=== PATIENT | female | born 1975 | race Caucasian/White ===

== ENCOUNTER 2020-03-12 14:41 | Outpatient (RCR) | payer OTHER, SELFPAY ==
--- NOTE | 2020-03-12 16:03 | PTOPEVAL ---
Thank you for referring Margie Sage to [facility]. Please review, sign, date and return this plan of care [facility]. I agree with and certify that the following plan of care is medically necessary. Referring Physician Date Admitting Provider: Attending Provider: Gen Everett, MD Referring Provider: *PT Outpatient Evaluation Start: 03/12/20 14:51 Freq: Status: Active Protocol: Document 03/12/20 14:59 J (Rec: 03/12/20 15:54 [facility] [id number]) Therapy Assessment Status Assessment Status Assessment Status Evaluation Evaluation Information Problem Diagnosis lumbar pain, bilateral hip pain, bilateral knee pain Onset 03/09/20 Additional Evaluation Detail LEFS = 98% functionally declined Subjective Information patient reports she was trying Query Text:As Reported By Patient/ to get injections to the back Family , but reports she needs a course of therapy prior to insurance approval for injections. she reports she has been having pain in the back for 25 years. she reports she has been having pain in the hips for about 14-15 years , and she has been having pain in the bilateral knees for about 1 year. she has been to PT for her hips and back many years ago. patient reports she has been walking with her rollator for 1 day. she reports she has a history of frequent falls. she reports she is unable to stand for long enough to shower. she reports she now has a shower chair as well as a rollator. she reports she has the most pain and increased symptoms in all joints with standing. she reports she also has a lot of difficulty with walking. Prior Level of Function Comments Additional Prior Level of Function patient reports she would like Comments to get back to fishing. she reports she also would like to get back to standing long enough to shower, get dressed, and walking a
== END 2020-04-24 16:23 | disposition home or self-care (01) ==
LOC: CHSPT 14:41
PROVIDERS: PCP Internal Medicine; Visit Provider Anesthesiology Pain Medicine
DX: M54.16 Radiculopathy, lumbar region (principal); M25.552 Pain in left hip; M25.551 Pain in right hip; M25.562 Pain in left knee; M25.561 Pain in right knee
CPT/HCPCS: 97014; 97110; 97162; G0283

== ENCOUNTER 2020-11-26 13:56 | Outpatient (CLI) | payer OTHER, SELFPAY ==
--- NOTE | ~2020-11-26 | US_ITS ---
EXAMINATION: US arterial ankle brachial ind EXAM DATE: 11/26/2020 15:02 INDICATION: Pain in left leg/Swelling. TECHNIQUE: Segmental pressures and plethysmographic and Doppler waveforms of the brachial and lower e xtremity arteries were obtained. Comparison is made to prior examination from 01/10/2014. FINDINGS: Right and left brachial artery pressures of 138 mm Hg and 138 mm Hg, respectively, are concordant (no rmal difference <= 30 mmHg). RIGHT LEG: The ankle-brachial index (JOSE) is 1.07 (normal >= 0.9-1). The great pressure is 82 mmHg. The lower extremity ratios, segmental pressure gradients as follows; Dorsalis pedis: 0.98 (135 mmHg). Posterior tibial: 1.07 (148 mmHg). (Normal gradients <= 20-30 mmHg between adjacent levels on the same leg or the same levels on the two legs). Arterial waveforms are biphasic. LEFT LEG: The ankle-brachial index (JOSE) is 1.05 (normal >= 0.9-1). The great toe pressure 91 mmHg. The lower extremity ratios, segmental pressure gradients as follows; Dorsalis pedis: 1.05 (145 mmHg). Posterior tibial: 0.96 (132 mmHg). (Normal gradients <= 20-30 mmHg between adjacent levels on the same leg or the same levels on the two legs). Arterial waveforms are monophasic. IMPRESSION: 1. Right ankle-brachial index 1.07, normal. 2. Left ankle-brachial index 1.05, normal. Reviewed, dictated and finalized at location A. SSES PREPARER
--- NOTE | ~2020-11-26 | US_ITS ---
EXAMINATION: US venous doppler [facility] EXAM DATE: 11/26/2020 15:01 INDICATION: Pain and swelling in left leg . TECHNIQUE: Multiple grayscale, color flow and Doppler images of the left lower extremity deep venous system were obtained and reviewed. There is no prior study for comparison. FINDINGS: The left common femoral, femoral and profunda veins demonstrate normal color flow, respirat ory variation, augmentation and compressibility. Compressibility, color flow confirmed within the le ft popliteal, posterior tibial, peroneal, and greater saphenous veins. IMPRESSION: 1. No left lower extremity deep venous thrombosis. Reviewed, dictated and finalized at location A. NESS PLANNING MANAGER
[2020-11-26 14:09] LABS: Basophils Absolute Auto 0.06 K/mm3 (0.00-0.10); Basophils Percent Auto 0.7 % (0.0-1.0); Eosinophils Absolute Auto 0.07 K/mm3 (0.02-0.50); Eosinophils Percent Auto 0.8 % (1.0-6.0); Hematocrit 39.8 % (35.0-49.0); Immature Granulocyte Absolute 0.12 K/mm3 (0.00-0.00); Immature Granulocyte Percent A 1.4 % (0.0-0.0); Lymphocytes Absolute Auto 1.48 K/mm3 (1.10-4.50); Lymphocytes Percent Auto 16.7 % (18.0-42.0); Mean Corpuscular HGB Conc 32.7 g/dL (32.0-36.0); Mean Corpuscular Hemoglobin 31.3 pg (27.0-31.0); Mean Corpuscular Volume 95.7 fL (78.0-102.0); Mean Platelet Volume 9.2 fl (9.2-11.8); Monocytes Absolute Auto 0.45 K/mm3 (0.10-0.90); Monocytes Percent Auto 5.1 % (2.0-11.0); Neutrophils Absolute Auto 6.7 K/mm3 (1.7-7.2); Neutrophils Percent Auto 75.3 % (50.0-70.0); Platelet Count Result 256 K/mm3 (150-420); Red Blood Count 4.16 M/mm3 (4.20-5.40); Red Cell Distribution Width 14.5 % (11.6-14.4); White Blood Count 8.9 K/mm3 (4.8-10.8)
[2020-11-26 14:25] LABS: Alanine Aminotransferase 20 U/L (14-59); Albumin Level 3.8 g/dL (3.4-5.0); Alkaline Phosphatase 106 U/L (46-116); Anion Gap 6 mmol/L (8-16); Aspartate Amino Transferase 10 U/L (15-37); Bilirubin,Total 0.5 mg/dL (0.00-1.00); Blood Urea Nitrogen 11 mg/dL (7-18); Calcium 9.6 mg/dL (8.5-10.1); Carbon Dioxide 31 mmol/L (21-32); Chloride 103 mmol/L (98-108); Estimated Glomerular Filt Rate 49; Glucose 91 mg/dL (70-99); Osmolality Calculated 289 mOsm/kg (285-295); Potassium 4.1 mmol/L (3.5-5.1); Sodium 140 mmol/L (136-145); Total Protein 7.5 g/dL (6.4-8.2); Uric Acid 6.2 mg/dL (2.6-6.0)
[2020-11-26 14:39] LABS: D Dimer 0.93 mg/L (0.19-0.50)
== END 2020-11-26 13:57 | disposition home or self-care (01) ==
LOC: CHSLAB 13:58
PROVIDERS: PCP Internal Medicine; Visit Provider Internal Medicine
DX: M79.605 Pain in left leg (principal); M79.89 Other specified soft tissue disorders
CPT/HCPCS: 36415; 80053; 84550; 85025; 85380; 93922; 93971

== ENCOUNTER 2020-11-27 10:57 | Outpatient (CLI) | payer OTHER, SELFPAY ==
--- NOTE | ~2020-11-27 | MM_ITS ---
EXAMINATION: MM screening lauren BI w shelly HISTORY: Screening TECHNIQUE: Craniocaudal and mediolateral oblique 3-D tomosynthesis images were obtained and synthetic 2-D images were generated. CAD analysis was submitted and interpreted. COMPARISON: No prior mammogram is available for comparison at this institution. BREAST PARENCHYMAL COMPOSITION: The breasts are heterogenously dense, which may obscure small masses. FINDINGS: There is no mammographic evidence for malignancy in the left breast. There is focal asymmet ry in the upper inner quadrant of the right breast. IMPRESSION: 1. Focal asymmetry of the right breast, upper inner quadrant. 2. Additional mammographic views and possible breast ultrasound are recommended. BI-RADS Category 0: Incomplete: Needs additional imaging evaluation. Reviewed, dictated and finalized at location A. 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 Focal asymmetry of the right breast, upper inner quadrant. 2. Additional mammographic views and possible breast ultrasound are recommended . BI-RADS Category 0: Incomplete: Needs additional imaging evaluation.
== END 2020-11-27 10:58 | disposition home or self-care (01) ==
PROVIDERS: PCP Internal Medicine
DX: Z12.31 Encounter for screening mammogram for malignant neoplasm of breast (principal)
CPT/HCPCS: 77063; 77067

== ENCOUNTER 2020-12-08 09:19 | Outpatient (CLI) | payer OTHER, SELFPAY ==
--- NOTE | ~2020-12-08 | MMUS_ITS ---
EXAMINATION: MM diagnostic lauren RT w shelly, US breast RT limited HISTORY: Follow-up right breast asymmetry TECHNIQUE: Additional 3-D tomosynthesis images of the right breast were performed and synthetic 2-D i mages were generated. CAD analysis was submitted and interpreted. High resolution Limited right breas t ultrasound was performed. COMPARISON: Comparison to multiple prior studies sequentially, with oldest reviewed study dated 07/26. BREAST PARENCHYMAL COMPOSITION: Breast composed of scattered areas of fibroglandular density. FINDINGS: MAMMOGRAPHIC FINDINGS: There is a partially circumscribed mass lower inner quadrant of the right breast, middle third. No morrell spicious calcifications or architectural distortion. ULTRASOUND: Limited right breast ultrasound: At 3:00, 2 cm from the nipple there is an irregular hypoechoic mass measuring 6 x 5 x 5 mm. No signif icant posterior features or internal vascularity. At 6:00, 1 cm from the nipple, there is an irregula r shaped hypoechoic mass with antiparallel configuration and posterior shadowing measuring 6 x 4 x 4 mm. No internal vascularity. IMPRESSION: 1. Irregular shaped masses of the right breast at 3 and 6:00 as described above. Ultrasound-guided bi opsy of each of these masses recommended. BI-RADS CATEGORY 4-SUSPICIOUS ABNORMALITY RECOMMENDATION: Ultrasound-guided right breast biopsies recommended. Reviewed, dictated and finalized at location A. IMPRESSION: 1. Irregular shaped masses of the right breast at 3 and 6:00 as described above . Ultrasound-guided biopsy of each of these masses recommended. BI-RADS CATEGORY 4-SUSPICIOUS ABNORMALITY RECOMMENDATION: Ultrasound-guided right breast biopsies recommended.
== END 2020-12-08 09:20 | disposition home or self-care (01) ==
PROVIDERS: PCP Internal Medicine
DX: R92.8 Other abnormal and inconclusive findings on diagnostic imaging of breast (principal)
CPT/HCPCS: 76642; 77061; 77065; G0279

== ENCOUNTER 2020-12-16 12:36 | Outpatient (CLI) | payer OTHER, SELFPAY ==
--- NOTE | ~2020-12-16 | MMUS_ITS ---
EXAMINATION: US breast biopsy RT w image, US breast bx add lesion RT, MM post biopsy diagnostic RT DATE: 12/16/2020 INDICATION: Indeterminate masses at the 3:00 and 6:00 locations of the right breast. Ultrasound-guide d core biopsy is requested to evaluate for malignancy. TECHNIQUE AND FINDINGS: The risks and potential benefits of the procedure were discussed with the patient including bleeding, infection, and nondiagnostic specimen. A time out was performed. The skin of the right breast was pr epared and draped in usual sterile fashion. 1% lidocaine was used for superficial anesthesia. 1% lido oscar with epinephrine was used for deep anesthesia. Attention was first directed at the mass at the 3:00 location. A vacuum-assisted biopsy gun needle wa s advanced through to the outer edge of the mass from a lateral approach utilizing sonographic guidan ce. A total of two tissue core samples were obtained through the lesion. The lesion was no longer bhupendra ntified and if the second sampling. A tissue marker clip was then placed at the biopsy site. Hemostas is was achieved. Attention was then directed at the mass at the 6:00 location. A vacuum-assisted biopsy gun needle was advanced through to the outer edge of the mass from a lateral approach utilizing sonographic guidanc e. A total of two tissue core samples were obtained through the lesion. The lesion was no longer iden tified and if the second sampling. A tissue marker clip was then placed at the biopsy site. Hemostasi s was achieved. A sterile bandage was applied. The patient tolerated procedure well and there was no evidence of immediate complication. The patient was given verbal instructions to return to the Emergency Department in the event of severe breast pa in or rapid breast enlargement. A two view right breast mammogram was obtained to document tissue mar ker clip placement. IMPRESSION: 1. Successful ultrasound-guided vacuum-assisted biopsy of two right breast masses with tissue marker placement. Reviewed, dictated and finalized at location A. IMPRESSION: 1. Successful ultrasound-guided vacuum-assisted biopsy of two right breast mass es with tissue marker placement. IMPRESSION: 1. Successful ultrasound-guided vacuum-assisted biopsy of two right breast mass es with tissue marker placement.
== END 2020-12-16 12:37 | disposition home or self-care (01) ==
LOC: CHSIMG 12:37
PROVIDERS: PCP Internal Medicine
DX: N60.11 Diffuse cystic mastopathy of right breast (principal); N63.10 Unspecified lump in the right breast, unspecified quadrant
CPT/HCPCS: 19083; 19084; 77065; 88305; A4648

== ENCOUNTER 2021-01-28 13:16 | Outpatient (CLI) | payer OTHER, SELFPAY ==
--- NOTE | ~2021-01-28 | XR_ITS ---
EXAMINATION: XR ankle LT min 3V DATE: 01/28/2021 13:36 INDICATION: Left ankle pain TECHNIQUE: Anteroposterior, lateral, mortise, and additional oblique view of the ankle were obtained. COMPARISON: None. FINDINGS: Ankle soft tissue swelling is present. Bone alignment is normal. There is no fracture. IMPRESSION: 1. Ankle soft tissue swelling without acute osseous abnormality. Reviewed, dictated and finalized at location A.
--- NOTE | ~2021-01-28 | XR_ITS ---
EXAMINATION: XR foot LT min 3V DATE: 01/28/2021 13:35 INDICATION: Left foot pain TECHNIQUE: Dorsoplantar, lateral, and 2 oblique views of the left foot were obtained. COMPARISON: None. FINDINGS: There is soft tissue swelling of the ankle and foot. No fracture, dislocation, or subluxati on is identified. The joint spaces are unremarkable. IMPRESSION: 1. Soft tissue swelling without acute osseous abnormality. Reviewed, dictated and finalized at location A.
== END 2021-01-28 13:17 | disposition home or self-care (01) ==
PROVIDERS: PCP Internal Medicine; Visit Provider Internal Medicine
DX: M25.572 Pain in left ankle and joints of left foot (principal); M79.672 Pain in left foot
CPT/HCPCS: 73610; 73630

== ENCOUNTER 2021-02-19 09:49 | Emergency (ER) | payer OTHER, SELFPAY ==
--- NOTE | ~2021-02-19 | XR_ITS ---
EXAMINATION: XR lumbar spine 2-3V DATE: 02/19/2021 11:25 INDICATION: Low back pain. Fall. TECHNIQUE: 3 views of lumbar spine were obtained. COMPARISON: Lumbar spine radiographs 01/03/2014 FINDINGS: There is 3 mm retrolisthesis of L5 on S1. No fracture. Vertebral body heights are normal. T here is mildly decreased disc height at L5-S1. There is moderate to severe lower lumbar facet joint o steoarthritis. IMPRESSION: 1. Mild lumbar spondylosis. Reviewed, dictated and finalized at location A. IMPRESSION: 1. Mild lumbar spondylosis.
--- NOTE | ~2021-02-19 | XR_ITS ---
EXAMINATION: XR shoulder RT min 2V DATE: 02/19/2021 11:25 INDICATION: Right shoulder pain. Fall. TECHNIQUE: 4 views of right shoulder were obtained. COMPARISON: None. FINDINGS: Bone alignment is normal. No fracture. There is mild osteoarthritis of glenohumeral joint. Acromioclavicular joint is normal. IMPRESSION: 1. Mild right glenohumeral joint osteoarthritis. Reviewed, dictated and finalized at location A.
--- NOTE | ~2021-02-19 | XR_ITS ---
EXAMINATION: XR hip RT 2V w AP pelvis DATE: 02/19/2021 11:25 INDICATION: Right hip pain. TECHNIQUE: An anteroposterior view of the pelvis on 2 radiographs and 2 views of right hip were obtai wendy. COMPARISON: Right hip radiographs 01/03/2014 FINDINGS: Bone alignment is normal. No fracture. There is severe osteoarthritis of right hip and mode rate osteoarthritis of left hip. IMPRESSION: 1. Severe right hip osteoarthritis and moderate left hip osteoarthrosis. Reviewed, dictated and finalized at location A.
--- NOTE | 2021-02-19 10:02 | ED.FALL ---
HPI - Fall General Chief Complaint: Fall Stated Complaint: Feel last evening back pain Time Seen by Provider: 02/19/21 10:03 Source: patient Mode of arrival: ambulatory Limitations: no limitations History of Present Illness HPI Narrative: 45-year-old woman with a history of chronic low back pain comes in today complaining of low back pain, right hip and right shoulder pain as well as bruising on her left leg and buttocks after she tripped yesterday and fell in her kitchen. She denies head injury and loss of consciousness. She states that is painful to walk especially in her back and right hip. She denies prior joint or back surgery. She has been taking her usual ibuprofen and gabapentin for pain. MD complaint: fall Onset (ago): day(s) (1) Fall from: standing Fall witnessed: no Place fall occurred: home Loss of consciousness: none Prolonged down time: no Symptoms prior to fall: none Context: tripped/slipped Location of injury: pelvis ( Right hip) Location of injury - extremities: Right: shoulder Severity: severe Quality: sharp and aching Associated symptoms (after fall): denies Related Data Home Medications Medication Instructions Recorded Confirmed allopurinol 100 mg PO DAILY 02/19/21 02/19/21 atorvastatin 10 mg PO DAILY 02/19/21 02/19/21 bupropion HCl 150 mg PO DAILY 02/19/21 02/19/21 fluticasone propion-salmeterol 2 inh INHALATION DAILY 02/19/21 02/19/21 gabapentin 600 mg PO TID 02/19/21 02/19/21 hydrochlorothiazide 12.5 mg PO DAILY 02/19/21 02/19/21 magnesium oxide 800 mg PO DAILY 02/19/21 02/19/21 montelukast 10 mg PO DAILY 02/19/21 02/19/21 sertraline 150 mg PO DAILY 02/19/21 02/19/21 Allergies Allergy/AdvReac Type Severity Reaction Status Date / Time No Known Allergies Allergy Unknown Unverified 06/20/19 19:24 Review of Systems Constitutional: Constitutional: Denies chills and Denies fever(s) Eyes: Eyes: Denies change in vision and Denies photophobia ENT: Denies nasal congestion and Denies sore throat Cardiovascular: Cardiovascular: Denies chest pain and Denies radiating jaw, neck or arm pain Respiratory: Respiratory: Denies cough and Denies dyspnea Gastrointestinal: Gastrointestinal: Denies abdominal pain, Denies nausea and Denies vomiting Genitourinary: Genitourinary: Denies nocturia and Denies dysuria Musculoskeletal: Musculoskeletal: Reports arthralgias and Denies joint swelling Integumentary/Breasts: Skin/Breast: Denies pruritus, Denies erythema and Denies rash Neurologic: Denies vertigo, Denies dizziness, Denies syncope, Denies focal weakness and Denies numbness Hematologic/Lymphatic: Hematologic/Lymphatic: Denies easy bleeding and Denies easy bruising PMFSH Past Medical History Medical History (Updated 02/19/21 @ 11:38 by Torrey Holly MD) Chronic back pain COPD (chronic obstructive pulmonary disease) Hyperlipidemia Hypertension Surgical History Surgical History (Updated 02/19/21 @ 10:42 by Torrey Holly MD) H/O tubal ligation History of appendectomy Social History Social History Smoking status: Never smoker Alcohol intake: never Substance use: never Living arrangements: with family Exam Const: General: alert Orientation/consciousness: patient oriented x3 Limitations: no limitations Other: Moderate to severe acute distress. Eyes: Conjunctivae: conjunctivae normal Pupils: Equal, round and reactive pupils present EOM: EOMs intact bilaterally Resp: Effort & Inspection: normal respiratory effort and not labored Auscultation: clear to auscultation bilaterally, no rales, no rhonchi and no wheezes Cardio: Rate: regular rate Rhythm: regular rhythm Heart sounds: no murmurs Skin: General skin exam: normal color and no pallor Rashes: no rashes Neuro: General: patient oriented x3 and no focal motor deficits Speech: normal speech Other: antalgic gait Extrem: General: no clubbing, cyano
[2021-02-19 10:04] VITALS: BP 145/72; PULSE 74; RESP 18; TEMP 36.1; O2SAT 100
[2021-02-19] MEDS: HYDROcodone/acetaminophen (*CRX) 5-325 MG TABLET 1 TAB PO (10:23)
[2021-02-19 10:25] VITALS: BP 145/72; PULSE 74; RESP 18; TEMP 36.1; O2SAT 100
== END 2021-02-19 11:47 | disposition home or self-care (01) ==
PROVIDERS: Emergency Provider Emergency Medicine; PCP Internal Medicine
DX: S39.012A Strain of muscle, fascia and tendon of lower back, initial encounter (principal); W01.0XXA Fall on same level from slipping, tripping and stumbling without subsequent striking against object, initial encounter
CPT/HCPCS: 72100; 73030; 73502; 99283; 99284; A9270

== ENCOUNTER 2021-03-08 04:23 | Emergency (ER) | payer OTHER, SELFPAY ==
[2021-03-08 04:23] VITALS: BP 144/98; PULSE 83; RESP 20; TEMP 37.2; O2SAT 98
--- NOTE | 2021-03-08 04:28 | ED.LOWEXIN ---
HPI - Extremity Injury (Lower) General Chief Complaint: Extremity Injury, Lower Stated Complaint: LEFT FOOT PAIN Time Seen by Provider: 03/08/21 04:25 Source: patient Mode of arrival: ambulatory History of Present Illness HPI Narrative: Patient presents with numbness in left foot. This has gone on since yesterday pm, and has been associated at times with a sharp pain in that leg. She has had no known injury to the leg. She has been receiving steroid injections in her low spine for what appears to be spinal stenosis, and radicular pain. MD complaint: hip injury Place: home Severity: moderate Relieving factors: nothing Exacerbating factors: weight bearing Context: walking Associated symptoms: numbness and ambulatory Other symptoms: none Treatments prior to arrival: cold therapy Related Data Home Medications Medication Instructions Recorded Confirmed allopurinol 200 mg PO DAILY 02/19/21 03/08/21 atorvastatin 10 mg PO DAILY 02/19/21 03/08/21 bupropion HCl 150 mg PO DAILY 02/19/21 03/08/21 fluticasone propion-salmeterol 2 inh INHALATION DAILY 02/19/21 03/08/21 gabapentin 600 mg PO TID 02/19/21 03/08/21 hydrochlorothiazide 12.5 mg PO DAILY 02/19/21 03/08/21 magnesium oxide 800 mg PO DAILY 02/19/21 03/08/21 montelukast 10 mg PO DAILY 02/19/21 03/08/21 sertraline 150 mg PO DAILY 02/19/21 03/08/21 Allergies Allergy/AdvReac Type Severity Reaction Status Date / Time No Known Allergies Allergy Unknown Unverified 06/20/19 19:24 Review of Systems Constitutional: Constitutional: Reports no additional constitutional complaints Eyes: Eyes: Reports no additional eye complaints ENT: Reports system reviewed and no additional complaints, except as documented Cardiovascular: Cardiovascular: Reports no additional cardiovascular complaints Respiratory: Respiratory: Reports no additional respiratory complaints Gastrointestinal: Gastrointestinal: Reports no additional gastrointestinal complaints Genitourinary: Genitourinary: Reports no additional female genitourinary complaints Musculoskeletal: Musculoskeletal: Reports no additional musculoskeletal complaints Integumentary/Breasts: Skin/Breast: Reports system reviewed and no additional complaints, except as docu Neurologic: Reports system reviewed and no additional complaints, except as documented Psychiatric: Psychiatric: Reports no additional psychiatric complaints Endocrine: Endocrine: Reports no additional endocrine complaints Hematologic/Lymphatic: Hematologic/Lymphatic: Reports no additional hematologic/lymphatic complaints Allergic/Immunologic: Allergic/Immunologic: Reports no additional allergic/immunologic complaints [facility] Past Medical History Medical History Chronic back pain COPD (chronic obstructive pulmonary disease) Hyperlipidemia Hypertension Surgical History Surgical History H/O tubal ligation History of appendectomy Family History Family History (Updated 03/08/21 @ 04:50 by Juanjo Alanis MD) Other Family history non-contributory Social History Social History (Updated 03/08/21 @ 04:51 by Juanjo Alanis MD) Smoking packs per day: 1 Smoking cigarettes per day: 20.0 Smoking status: Current every day smoker Tobacco type: cigarettes Alcohol intake: never Substance use: never Exam Const: General: no acute distress and alert Orientation/consciousness: patient oriented x3 HENMT: Head: normal to inspection Ears: external ears normal and TM's normal bilaterally General nose exam: Normal external nose present Face and sinus: normal facial exam Mouth: Yes Normal oral and palatal mucosa present Throat: posterior oropharynx normal Eyes: Conjunctivae: conjunctivae normal Neck: Neck: normal visual inspection Chest: Chest palpation & inspection: normal inspection of the chest Resp: Effort & Inspection: normal respiratory effort
[2021-03-08] MEDS: DEXAMETHASONE 4 MG TABLET 12 MG PO (04:52)
[2021-03-08] MEDS: KETOROLAC (*BKC) 60 MG/2 ML VIAL IM (04:52)
[2021-03-08 05:05] VITALS: BP 144/98; PULSE 87; RESP 20; TEMP 36.6; O2SAT 97
== END 2021-03-08 05:10 | disposition home or self-care (01) ==
PROVIDERS: Emergency Provider Emergency Medicine; PCP Internal Medicine
DX: G58.9 Mononeuropathy, unspecified (principal)
CPT/HCPCS: 96372; 99283; J1885; J8540

== ENCOUNTER 2021-12-02 14:18 | Outpatient (CLI) | payer OTHER, SELFPAY ==
--- NOTE | ~2021-12-02 | XR_ITS ---
EXAMINATION: XR chest 2V DATE: 12/02/2021 14:44 INDICATION: Chronic obstructive pulmonary disease exacerbation. Shortness of breath and cough. TECHNIQUE: Frontal and lateral views of the chest were obtained. COMPARISON: Chest 2 views 12/29/2017 FINDINGS: The chest demonstrates clear lungs without pneumonia, pleural effusion, or pneumothorax. Th e heart size is normal. IMPRESSION: 1. No acute cardiopulmonary disease. Reviewed, dictated and finalized at location A. GER DIESEL
[2021-12-02 14:33] LABS: Basophils Absolute Auto 0.03 K/mm3 (0.00-0.10); Basophils Percent Auto 0.7 % (0.0-1.0); Eosinophils Absolute Auto 0.01 K/mm3 (0.02-0.50); Eosinophils Percent Auto 0.2 % (1.0-6.0); Hematocrit 37.3 % (35.0-49.0); Hemoglobin 12.7 g/dL (12.0-15.0); Immature Granulocyte Absolute 0.03 K/mm3 (0.00-0.00); Immature Granulocyte Percent A 0.7 % (0.0-0.0); Lymphocytes Absolute Auto 0.49 K/mm3 (1.10-4.50); Lymphocytes Percent Auto 10.8 % (18.0-42.0); Mean Corpuscular Hemoglobin 32.2 pg (27.0-31.0); Mean Corpuscular Volume 94.4 fL (78.0-102.0); Mean Platelet Volume 8.9 fl (9.2-11.8); Monocytes Absolute Auto 0.37 K/mm3 (0.10-0.90); Monocytes Percent Auto 8.1 % (2.0-11.0); Neutrophils Absolute Auto 3.6 K/mm3 (1.7-7.2); Neutrophils Percent Auto 79.5 % (50.0-70.0); Platelet Count Result 208 K/mm3 (150-420); Red Blood Count 3.95 M/mm3 (4.20-5.40); Red Cell Distribution Width 13.6 % (11.6-14.4); White Blood Count 4.6 K/mm3 (4.8-10.8)
[2021-12-02 15:02] LABS: Alanine Aminotransferase 18 U/L (14-59); Albumin Level 3.4 g/dL (3.4-5.0); Alkaline Phosphatase 99 U/L (46-116); Anion Gap 10 mmol/L (8-16); Aspartate Amino Transferase 28 U/L (15-37); Bilirubin,Total 0.4 mg/dL (0.00-1.00); Blood Urea Nitrogen 10 mg/dL (7-18); Calcium 8.9 mg/dL (8.5-10.1); Carbon Dioxide 29 mmol/L (21-32); Chloride 100 mmol/L (98-108); Estimated Glomerular Filt Rate > 60; Glucose 79 mg/dL (70-99); Osmolality Calculated 286 mOsm/kg (285-295); Potassium 3.4 mmol/L (3.5-5.1); Sodium 139 mmol/L (136-145); Total Protein 6.5 g/dL (6.4-8.2)
== END 2021-12-02 14:19 | disposition home or self-care (01) ==
LOC: CHSIMG 14:20
PROVIDERS: PCP Internal Medicine; Visit Provider Internal Medicine
DX: J44.1 Chronic obstructive pulmonary disease with (acute) exacerbation (principal)
CPT/HCPCS: 36415; 71046; 80053; 85025

== ENCOUNTER 2022-01-07 08:21 | Outpatient (CLI) | payer OTHER, SELFPAY ==
--- NOTE | ~2022-01-07 | XR_ITS ---
EXAMINATION: XR_CERV2-3V_CR DATE: 01/07/2022 08:53 INDICATION: Right-sided neck pain radiating to the chest. TECHNIQUE: 3 views of cervical spine were obtained. COMPARISON: None. FINDINGS: The C7-T1 junction is not well visualized on the lateral view. Bone alignment is normal. Ve rtebral body heights and intervertebral disc heights are normal. The facet joints are unremarkable. N o central canal stenosis or prevertebral soft tissue swelling. IMPRESSION: 1. No etiology for the patient's symptoms. Reviewed, dictated and finalized at location A.
[2022-01-07 08:36] LABS: Basophils Absolute Auto 0.05 K/mm3 (0.00-0.10); Basophils Percent Auto 0.8 % (0.0-1.0); Eosinophils Absolute Auto 0.06 K/mm3 (0.02-0.50); Hematocrit 38.9 % (35.0-49.0); Hemoglobin 13.1 g/dL (12.0-15.0); Immature Granulocyte Absolute 0.09 K/mm3 (0.00-0.00); Immature Granulocyte Percent A 1.5 % (0.0-0.0); Lymphocytes Absolute Auto 1.56 K/mm3 (1.10-4.50); Lymphocytes Percent Auto 25.3 % (18.0-42.0); Mean Corpuscular HGB Conc 33.7 g/dL (32.0-36.0); Mean Corpuscular Hemoglobin 32.7 pg (27.0-31.0); Mean Platelet Volume 9.1 fl (9.2-11.8); Monocytes Absolute Auto 0.38 K/mm3 (0.10-0.90); Monocytes Percent Auto 6.2 % (2.0-11.0); Neutrophils Percent Auto 65.2 % (50.0-70.0); Platelet Count Result 270 K/mm3 (150-420); Red Blood Count 4.01 M/mm3 (4.20-5.40); Red Cell Distribution Width 14.1 % (11.6-14.4); White Blood Count 6.2 K/mm3 (4.8-10.8)
[2022-01-07 08:43] LABS: Add Urine Microscopic? YES; Appearance Urine Clear (Clear); Bilirubin Urine Negative (Negative); Blood Urine 3+ (Negative); Color Urine Yellow (Yellow); Glucose Urine UA Negative (Negative); Ketones Urine Negative (Negative); Leukocyte Esterase Ur Trace LEU/UL (Negative); Nitrate Urine Negative (Negative); Protein Urine Negative (Negative); Urobilinogen Urine 0.2 mg/dL (0.2-1.0); pH Urine 6.5 (5.0-8.0)
[2022-01-07 09:00] LABS: Bacteria Urine Trace /hpf; Squamous Epithelial Cell Urine Many /hpf (Few)
[2022-01-07 09:01] LABS: Mucus Urine Few /lpf
[2022-01-07 09:38] LABS: Alanine Aminotransferase 22 U/L (14-59); Albumin Level 3.5 g/dL (3.4-5.0); Alkaline Phosphatase 97 U/L (46-116); Anion Gap 7 mmol/L (8-16); Aspartate Amino Transferase 17 U/L (15-37); Bilirubin,Total 0.5 mg/dL (0.00-1.00); Blood Urea Nitrogen 13 mg/dL (7-18); Calcium 9.5 mg/dL (8.5-10.1); Carbon Dioxide 31 mmol/L (21-32); Chloride 101 mmol/L (98-108); Cholesterol 158 mg/dL (0-200); Estimated Glomerular Filt Rate > 60; Free T4 Free Thyroxine 0.96 ng/dL (0.76-1.46); Glucose 91 mg/dL (70-99); HDL Direct 48 mg/dL (40-60); LDL Cholesterol Calculated 63 mg/dL (<130); Osmolality Calculated 288 mOsm/kg (285-295); Potassium 4.7 mmol/L (3.5-5.1); Sodium 139 mmol/L (136-145); Thyroid Stimulating Hormone 1.62 uIU/mL (0.36-3.74); Total Protein 6.5 g/dL (6.4-8.2); Triglycerides 237 mg/dL (0-150)
== END 2022-01-07 08:22 | disposition home or self-care (01) ==
LOC: CHSLAB 08:23
PROVIDERS: PCP Internal Medicine; Visit Provider Nurse Practitioner Family
DX: M54.2 Cervicalgia (principal); E78.2 Mixed hyperlipidemia; M79.7 Fibromyalgia; J44.1 Chronic obstructive pulmonary disease with (acute) exacerbation; F34.1 Dysthymic disorder; I10 Essential (primary) hypertension; M54.50 Low back pain, unspecified; R42 Dizziness and giddiness
CPT/HCPCS: 36415; 72040; 80053; 80061; 81001; 84439; 84443; 85025

== ENCOUNTER 2022-01-10 12:32 | Outpatient (CLI) | payer OTHER, SELFPAY ==
--- NOTE | ~2022-01-10 | MM_ITS ---
EXAMINATION: MM screening lauren BI w shelly HISTORY: Screening mammogram TECHNIQUE: Craniocaudal and mediolateral oblique 3-D tomosynthesis images were obtained and synthetic 2-D images were generated. CAD analysis was submitted and interpreted. COMPARISON: 12/12/2020 ultrasound-guided biopsy 12/08/2020 diagnostic right mammogram and limited right breast ultrasound 11/27/2020 bilateral screening mammogram BREAST PARENCHYMAL COMPOSITION: There are scattered areas of fibroglandular density. FINDINGS: Biopsy markers are noted on the right; history of prior benign right breast biopsy. There i s no evidence of suspicious mass, calcification, or architectural distortion to suggest malignancy in either breast. There has been no suspicious interval change. IMPRESSION: 1. No mammographic evidence of malignancy. 2. Recommend routine screening mammography in one year. BI-RADS Category 1: Negative Reviewed, dictated and finalized at location A.
== END 2022-01-10 12:33 | disposition home or self-care (01) ==
LOC: CHSIMG 12:33
PROVIDERS: PCP Internal Medicine
DX: Z12.31 Encounter for screening mammogram for malignant neoplasm of breast (principal)
CPT/HCPCS: 77063; 77067

== ENCOUNTER 2022-12-05 14:56 | Outpatient (CLI) | payer OTHER, SELFPAY ==
[2022-12-05 15:20] LABS: Basophils Percent Auto 0.9 % (0.0-1.0); Eosinophils Absolute Auto 0.12 K/mm3 (0.02-0.50); Eosinophils Percent Auto 1.1 % (1.0-6.0); Hematocrit 38.3 % (35.0-49.0); Hemoglobin 13.1 g/dL (12.0-15.0); Immature Granulocyte Absolute 0.17 K/mm3 (0.00-0.00); Immature Granulocyte Percent A 1.5 % (0.0-0.0); Lymphocytes Absolute Auto 1.87 K/mm3 (1.10-4.50); Lymphocytes Percent Auto 16.8 % (18.0-42.0); Mean Corpuscular HGB Conc 34.2 g/dL (32.0-36.0); Mean Corpuscular Hemoglobin 33.4 pg (27.0-31.0); Mean Corpuscular Volume 97.7 fL (78.0-102.0); Mean Platelet Volume 9.4 fl (9.2-11.8); Monocytes Absolute Auto 0.72 K/mm3 (0.10-0.90); Monocytes Percent Auto 6.5 % (2.0-11.0); Neutrophils Absolute Auto 8.2 K/mm3 (1.7-7.2); Neutrophils Percent Auto 73.2 % (50.0-70.0); Platelet Count Result 307 K/mm3 (150-420); Red Blood Count 3.92 M/mm3 (4.20-5.40); White Blood Count 11.2 K/mm3 (4.8-10.8)
[2022-12-05 15:33] LABS: Appearance Urine Clear (Clear); Bilirubin Urine Negative (Negative); Blood Urine Negative (Negative); Color Urine Light Yellow (Yellow); Glucose Urine UA Negative (Negative); Ketones Urine Negative (Negative); Leukocyte Esterase Ur Trace (Negative); Nitrate Urine Negative (Negative); Protein Urine Negative (Negative); Urobilinogen Urine 0.2 mg/dL (0.2-1.0); pH Urine 6.5 (5.0-8.0)
[2022-12-05 15:56] LABS: Add Urine Microscopic? YES; Bacteria Urine 1+ /hpf; RBC Urine None seen /hpf (0-2); Squamous Epithelial Cell Urine Few /hpf (Few); WBC Urine 0-3 /hpf (0-3)
[2022-12-05 16:52] LABS: Alanine Aminotransferase 29 U/L (14-59); Albumin Level 3.7 g/dL (3.4-5.0); Alkaline Phosphatase 101 U/L (46-116); Anion Gap 9 mmol/L (8-16); Aspartate Amino Transferase 18 U/L (15-37); Bilirubin,Total 0.5 mg/dL (0.00-1.00); Blood Urea Nitrogen 11 mg/dL (7-18); Calcium 9.5 mg/dL (8.5-10.1); Carbon Dioxide 28 mmol/L (21-32); Chloride 102 mmol/L (98-108); Estimated Glomerular Filt Rate > 60; Free T3 2.56 pg/mL (2.18-3.98); Free T4 Free Thyroxine 0.97 ng/dL (0.76-1.46); Glucose 80 mg/dL (70-99); Osmolality Calculated 286 mOsm/kg (285-295); Potassium 3.9 mmol/L (3.5-5.1); Sodium 139 mmol/L (136-145); Thyroid Stimulating Hormone 1.79 uIU/mL (0.36-3.74); Total Protein 7.2 g/dL (6.4-8.2); Vitamin B12 253 pg/mL (193-986)
[2022-12-11 10:00] LABS: Methylmalonic Acid 167 nmol/L (87-318)
== END 2022-12-05 14:57 | disposition home or self-care (01) ==
PROVIDERS: PCP Internal Medicine; Visit Provider Internal Medicine
DX: G62.9 Polyneuropathy, unspecified (principal); N39.0 Urinary tract infection, site not specified; E53.8 Deficiency of other specified B group vitamins; E78.2 Mixed hyperlipidemia
CPT/HCPCS: 36415; 80053; 81001; 82607; 83921; 84439; 84443; 84481; 85025; 86038; 86039; 87086; 87088

== ENCOUNTER 2022-12-12 08:20 | Outpatient (CLI) | payer OTHER, SELFPAY ==
--- NOTE | ~2022-12-12 | US_ITS ---
EXAMINATION: US arterial ankle brachial ind DATE: 12/12/2022 08:48 INDICATION: Peripheral arterial occlusive disease. TECHNIQUE: Segmental pressures and plethysmographic and Doppler waveforms of the brachial and lower e xtremity arteries were obtained. COMPARISON: None. FINDINGS: Right and left brachial artery pressures of 143 mm Hg and 135 mm Hg, respectively, are concordant (no rmal difference <= 30 mmHg). The right ankle-brachial index (JOSE) is 0.96 (normal >= 0.9-1.0). The right great toe-brachial index (TBI) is 0.50 (normal >= 0.65). Arterial Doppler waveforms are biphasic with brisk systolic upstrokes at both right posterior tibial and dorsalis pedis arteries. The left JOSE is 0.94. The left TBI is 0.69. Arterial Doppler waveforms are biphasic with brisk systol ic upstrokes at both left posterior tibial and dorsalis pedis arteries. IMPRESSION: 1. Mild arterial occlusive disease to the right lower limb with normal right JOSE but mildly decreased right TBI. 2. No significant arterial occlusive disease to the left lower limb with normal left JOSE and TBI. Reviewed, dictated and finalized at location A. IMPRESSION: 1. Mild arterial occlusive disease to the right lower limb with normal right AB I but mildly decreased right TBI. 2. No significant arterial occlusive disease to the left lower limb with normal left JOSE and TBI.
== END 2022-12-12 08:21 | disposition home or self-care (01) ==
LOC: CHSIMG 08:21
PROVIDERS: PCP Internal Medicine; Visit Provider Internal Medicine
DX: I73.9 Peripheral vascular disease, unspecified (principal)
CPT/HCPCS: 93922

== ENCOUNTER 2023-02-09 14:00 | Outpatient (CLI) | payer OTHER, SELFPAY ==
--- NOTE | ~2023-02-09 | US_ITS ---
EXAMINATION: US venous doppler [facility] DATE: 02/09/2023 14:31 INDICATION: Lower limb edema. TECHNIQUE: Grayscale ultrasound images without and with compression and Doppler ultrasound images of the bilateral lower extremity veins were obtained. COMPARISON: Ultrasound 11/26/2020 FINDINGS: The visualized portions of right common femoral vein, profunda (deep) femoral vein, femoral vein, pop liteal vein, peroneal veins, posterior tibial veins, and greater saphenous vein outflow are patent. The visualized portions of left common femoral vein, profunda femoral vein, femoral vein, popliteal v ein, peroneal veins, posterior tibial veins, and greater saphenous vein outflow are patent. IMPRESSION: 1. No deep venous thrombosis. Reviewed, dictated and finalized at location A.
== END 2023-02-09 14:01 | disposition home or self-care (01) ==
LOC: CHSLAB 14:02
PROVIDERS: PCP Internal Medicine; Visit Provider Internal Medicine
DX: R60.0 Localized edema (principal)
CPT/HCPCS: 93970

== ENCOUNTER 2023-02-14 09:08 | Outpatient (CLI) | payer OTHER, SELFPAY ==
--- NOTE | ~2023-02-14 | CT_ITS ---
EXAMINATION: CTA chest PE protocol DATE: 02/14/2023 10:08 INDICATION: Dyspnea on exertion. Chest pain. Positive d-dimer. TECHNIQUE: Computed tomography (CT) pulmonary angiogram of the chest was performed with 150 mL Omnipa que-350 intravenous contrast. Additional 3D reconstructions utilizing coronal maximum intensity proje ction (MIP) were performed. Automated exposure control and iterative reconstruction technique were em ployed. The dose-length product was 1941.89 mGy-cm. COMPARISON: None FINDINGS: Good but suboptimal contrast opacification of the pulmonary arteries both on the initial and repeated imaging. There is mild streak artifact from dense contrast in the superior vena cava and right atriu m. Minimal to mild scattered respiratory motion artifact most prominent at the lung bases. Together t his mildly decreases sensitivity in some of the smaller subsegmental pulmonary arteries. No pulmonary embolism identified. Mild discoid atelectasis in the lingula. Additional mild peripheral atelectasis at the anteromedial aspect of the right middle lobe. No pneumonia, pulmonary edema or pleural effusi on. Heart size is normal. No pericardial effusion. Thoracic aorta is normal in caliber. No pathologic ally enlarged thoracic lymphadenopathy. Diffuse hepatic steatosis. Mild S-shaped curvature of the tho racic spine with mild spondylosis. IMPRESSION: 1. No pulmonary embolism or other acute cardiopulmonary disease. Reviewed, dictated and finalized at location A.
== END 2023-02-14 09:09 | disposition home or self-care (01) ==
PROVIDERS: PCP Internal Medicine; Visit Provider Internal Medicine
DX: R06.02 Shortness of breath (principal); R79.1 Abnormal coagulation profile
CPT/HCPCS: 71275; Q9967

== ENCOUNTER 2023-04-26 12:45 | Outpatient (CLI) | payer OTHER, SELFPAY ==
--- NOTE | 2023-04-26 14:30 | NEURO_ITS ---
Impression: # Complains of numbness; Severe edema noted -- Extra strength stimulation required to obtain responses. # Bilateral mild neuropathy. # Normal needle/EMG without neurogenic changes. Nerve Conduction Studies Anti Sensory Summary Table Stim Site NR Peak (ms) P-T Amp (?V) Site1 Site2 Delta-P (ms) Dist (cm) Higinio (m/s) Left Sup Fibular Anti Sensory (Ant Lat Mall) 14 cm 3.8 13.9 14 cm Ant Lat Mall 3.8 16.0 42 Right Sup Fibular Anti Sensory (Ant Lat Mall) 14 cm 3.7 8.9 14 cm Ant Lat Mall 3.7 16.0 43 Left Sural Anti Sensory (Lat Mall) NO RESPONSE Calf NR Calf Lat Mall 16.0 Right Sural Anti Sensory (Lat Mall) NO RESPONSE Calf NR Calf Lat Mall 16.0 Motor Summary Table Stim Site NR Onset (ms) O-P Amp (mV) Site1 Site2 Delta-0 (ms) Dist (cm) Higinio (m/s) Left Peroneal Motor (Vastus Med) Ankle 2.6 2.5 Popit Ankle 7.6 35.0 46 Popit 10.2 1.7 Right Peroneal Motor (Vastus Med) Ankle 2.8 0.9 Popit Ankle 7.2 34.0 47 Popit 10.0 1.6 Left Tibial Motor (Abd Kitchen Brev) Ankle 3.4 1.9 Knee Ankle 7.9 38.0 48 Knee 11.3 0.9 Right Tibial Motor (Abd Kitchen Brev) Ankle 3.2 2.7 Knee Ankle 8.8 36.0 41 Knee 12.0 1.3 F Wave Studies NR F-Lat (ms) L-R F-Lat (ms) Left Peroneal (Mrkrs) (EDB) 45.86 1.80 Right Peroneal (Mrkrs) (EDB) 47.65 1.80 Left Tibial (Mrkrs) (Abd Hallucis) 47.93 0.58 Right Tibial (Mrkrs) (Abd Hallucis) 47.35 0.58 EMG Side Muscle Nerve Root Ins Act Fibs Amp Dur Recrt Comment Right AntTibialis Dp Br Fibular L4-5 Nml Nml Nml Nml Nml Right Gastroc Tibial S1-2 Nml Nml Nml Nml Nml Right Fibularis Long Sup Br Fibular L5-S1 Nml Nml Nml Nml Nml Right Flex Dig Long Tibial L5-S2 Nml Nml Nml Nml Nml Right Ext Dig Brev Dp Br Fibular L5, S1 Nml Nml Nml Nml Nml Left AntTibialis Dp Br Fibular L4-5 Nml Nml Nml Nml Nml Left Gastroc Tibial S1-2 Nml Nml Nml Nml Nml Left Fibularis Long Sup Br Fibular L5-S1 Nml Nml Nml Nml Nml Left Flex Dig Long Tibial L5-S2 Nml Nml Nml Nml Nml Left Ext Dig Brev Dp Br Fibular L5, S1 Nml Nml Nml Nml Nml MTDD
== END 2023-04-26 12:46 | disposition home or self-care (01) ==
LOC: ANHNEURO 12:45
PROVIDERS: PCP Internal Medicine; Visit Provider Internal Medicine
DX: G62.9 Polyneuropathy, unspecified (principal); R60.9 Edema, unspecified; R20.0 Anesthesia of skin
CPT/HCPCS: 95886; 95910

== ENCOUNTER 2023-05-03 13:28 | Outpatient (CLI) | payer OTHER, SELFPAY ==
--- NOTE | ~2023-05-03 | MM_ITS ---
EXAMINATION: MM screening [facility] BI w [facility] HISTORY: Screening mammogram TECHNIQUE: Craniocaudal and mediolateral oblique 3-D tomosynthesis images were obtained and synthetic 2-D images were generated. CAD analysis was submitted and interpreted. COMPARISON: 01/10/2022, 12/08/2020, 11/27/2020 BREAST PARENCHYMAL COMPOSITION: There are scattered areas of fibroglandular density. FINDINGS: No suspicious mass, calcification, or architectural distortion are identified in either teresa ast to suggest malignancy. There has been no suspicious interval change. IMPRESSION: 1. No mammographic evidence of malignancy. 2. Recommend routine screening mammography in one year. BI-RADS Category 1: Negative Reviewed, dictated and finalized at location A.
== END 2023-05-03 13:29 | disposition home or self-care (01) ==
LOC: CHSIMG 13:30
PROVIDERS: PCP Internal Medicine; Visit Provider Obstetrics & Gynecology
DX: Z12.31 Encounter for screening mammogram for malignant neoplasm of breast (principal)
CPT/HCPCS: 77063; 77067

== ENCOUNTER 2023-07-26 13:33 | Outpatient (CLI) | payer OTHER, SELFPAY | END 2023-07-26 13:34 | disposition home or self-care (01) | LOC: CHSLAB 13:35 | PROVIDERS: PCP Internal Medicine; Visit Provider Internal Medicine | DX: L03.311 Cellulitis of abdominal wall (principal) | CPT/HCPCS: 87070; 87205 ==

== ENCOUNTER 2023-09-21 14:19 | Outpatient (CLI) | payer OTHER, SELFPAY ==
[2023-09-21 14:40] LABS: Basophils Absolute Auto 0.11 K/mm3 (0.00-0.10); Eosinophils Absolute Auto 0.07 K/mm3 (0.02-0.50); Eosinophils Percent Auto 0.6 % (1.0-6.0); Hematocrit 36.5 % (35.0-49.0); Immature Granulocyte Absolute 0.14 K/mm3 (0.00-0.00); Immature Granulocyte Percent A 1.2 % (0.0-0.0); Lymphocytes Absolute Auto 1.79 K/mm3 (1.10-4.50); Lymphocytes Percent Auto 15.6 % (18.0-42.0); Mean Corpuscular HGB Conc 32.9 g/dL (32.0-36.0); Mean Corpuscular Hemoglobin 33.3 pg (27.0-31.0); Mean Corpuscular Volume 101.4 fL (78.0-102.0); Mean Platelet Volume 9.8 fl (9.2-11.8); Monocytes Absolute Auto 0.64 K/mm3 (0.10-0.90); Monocytes Percent Auto 5.6 % (2.0-11.0); Neutrophils Absolute Auto 8.8 K/mm3 (1.7-7.2); Platelet Count Result 365 K/mm3 (150-420); Red Cell Distribution Width 15.8 % (11.6-14.4); White Blood Count 11.5 K/mm3 (4.8-10.8)
[2023-09-21 14:57] LABS: INR 0.9; Partial Thromboplastin Time 28.8 SEC (23.90-30.70)
[2023-09-21 15:08] LABS: Alanine Aminotransferase 27 U/L (14-59); Albumin Level 3.7 g/dL (3.4-5.0); Alkaline Phosphatase 110 U/L (46-116); Anion Gap 4 mmol/L (8-16); Aspartate Amino Transferase 12 U/L (15-37); Bilirubin,Total 0.6 mg/dL (0.00-1.00); Blood Urea Nitrogen 12 mg/dL (7-18); Calcium 9.5 mg/dL (8.5-10.1); Carbon Dioxide 35 mmol/L (21-32); Chloride 97 mmol/L (98-108); Cholesterol 141 mg/dL (0-200); Estimated Glomerular Filt Rate 60; Free T4 Free Thyroxine 1.03 ng/dL (0.76-1.46); Glucose 89 mg/dL (70-99); HDL Direct 56 mg/dL (40-60); LDL Cholesterol Calculated 48 mg/dL (<130); Osmolality Calculated 280 mOsm/kg (285-295); Potassium 3.5 mmol/L (3.5-5.1); Sodium 136 mmol/L (136-145); Thyroid Stimulating Hormone 2.55 uIU/mL (0.36-3.74); Total Protein 7.4 g/dL (6.4-8.2); Triglycerides 183 mg/dL (0-150)
[2023-09-21 15:22] LABS: Hemoglobin A1C < 4.7 % (<5.7)
[2023-09-24 04:17] LABS: Total Triiodothyronine (T3) 125.3 ng/dL (76-181)
== END 2023-09-21 14:20 | disposition home or self-care (01) ==
LOC: CHSLAB 14:22
PROVIDERS: PCP Internal Medicine; Visit Provider Internal Medicine Cardiovascular Disease
DX: I87.2 Venous insufficiency (chronic) (peripheral) (principal); R60.0 Localized edema; M79.605 Pain in left leg; M19.90 Unspecified osteoarthritis, unspecified site; I10 Essential (primary) hypertension; J44.1 Chronic obstructive pulmonary disease with (acute) exacerbation; I47.10 Supraventricular tachycardia, unspecified; I45.3 Trifascicular block; R06.09 Other forms of dyspnea; G47.33 Obstructive sleep apnea (adult) (pediatric); R07.9 Chest pain, unspecified; E78.5 Hyperlipidemia, unspecified; J44.9 Chronic obstructive pulmonary disease, unspecified; F17.200 Nicotine dependence, unspecified, uncomplicated; F43.10 Post-traumatic stress disorder, unspecified; E66.9 Obesity, unspecified; I45.6 Pre-excitation syndrome; Z79.899 Other long term (current) drug therapy
CPT/HCPCS: 36415; 80053; 80061; 83036; 84439; 84443; 84480; 85025; 85610; 85730

== ENCOUNTER 2023-10-05 08:47 | Outpatient (CLI) | payer OTHER, SELFPAY ==
--- NOTE | ~2023-10-05 | US_ITS ---
EXAMINATION: US soft tissue upper back DATE: 10/05/2023 09:05 INDICATION: Soft tissue nodules at the right side of the mid to upper back TECHNIQUE: Multiple grayscale and Doppler ultrasound images of the region of concern at the right mid back were obtained. COMPARISON: None FINDINGS: There are couple subcutaneous nodules which are isoechoic and with similar echotexture to the surroun ding subcutaneous fat which measure 2.3 x 1.0 x 1.1 cm and 1.8 x 1.6 x 1.1 cm. No other abnormal mass es or fluid collections identified. IMPRESSION: 1. A couple nonspecific subcutaneous nodules with appearance most consistent with and statistically m ost likely to represent lipomas. Reviewed, dictated and finalized at location A. 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 A couple nonspecific subcutaneous nodules with appearance most consistent wi th and statistically most likely to represent lipomas.
== END 2023-10-05 08:48 | disposition home or self-care (01) ==
LOC: CHSIMG 08:48
PROVIDERS: PCP Internal Medicine; Visit Provider Internal Medicine
DX: R22.2 Localized swelling, mass and lump, trunk (principal)
CPT/HCPCS: 76604

== ENCOUNTER 2024-05-21 12:34 | Outpatient (CLI) | payer OTHER, SELFPAY ==
--- NOTE | ~2024-05-21 | MM_ITS ---
EXAMINATION: MM screening [facility] HISTORY: Screening TECHNIQUE: Craniocaudal and mediolateral oblique 3-D tomosynthesis images were obtained and synthetic 2-D images were generated. CAD analysis was submitted and interpreted. COMPARISON: Comparison to multiple prior studies sequentially, with oldest reviewed study dated 11/11. BREAST PARENCHYMAL COMPOSITION: Not dense: There are scattered areas of fibroglandular density. FINDINGS: There is no evidence of suspicious mass, calcification, or architectural distortion to sugg est malignancy in either breast. There has been no suspicious interval change. IMPRESSION: 1. No mammographic evidence of malignancy. 2. Recommend routine screening mammography in one year. BI-RADS Category 1: Negative Reviewed, dictated and finalized at location B.
== END 2024-05-21 12:35 | disposition home or self-care (01) ==
PROVIDERS: Absent Provider Obstetrics & Gynecology; Visit Provider Internal Medicine
DX: Z12.31 Encounter for screening mammogram for malignant neoplasm of breast (principal)
CPT/HCPCS: 77063; 77067

== ENCOUNTER 2024-05-26 09:55 | Emergency (ER) | payer OTHER, SELFPAY ==
--- NOTE | ~2024-05-26 | XR_ITS ---
Left ankle Technique: AP, oblique, and lateral views were obtained. Clinical History: Injury Findings: No acute fracture or dislocation is seen. Osseous alignment is anatomic. Ankle mortise and other visualized joint spaces are preserved. There is mild soft tissue swelling about the ankle. Impression: No fracture or dislocation. Reviewed, dictated and finalized at [facility]. Impression: No fracture or dislocation.
--- NOTE | ~2024-05-26 | XR_ITS ---
Left foot Technique: AP, oblique, and lateral views were obtained. Clinical History: Injury Findings: No acute fracture or dislocation is seen. Osseous alignment is anatomic. Joint spaces are p reserved without erosive or degenerative change. Soft tissues are unremarkable. Impression: Unremarkable left foot radiographs. Reviewed, dictated and finalized at location . Impression: Unremarkable left foot radiographs.
[2024-05-26 09:56] VITALS: BP 131/78; PULSE 79; RESP 20; TEMP 36.4; O2SAT 98
--- NOTE | 2024-05-26 09:56 | ED.LOWEXIN ---
HPI - Extremity Injury (Lower) General Chief Complaint: Extremity Injury, Lower Stated Complaint: left foot pain Time Seen by Provider: 05/26/24 09:56 Source: patient Mode of arrival: ambulatory Limitations: no limitations History of Present Illness HPI Narrative: Patient is a 48-year-old female with an injury to her left foot last night and rolled her left ankle and foot with inversion. MD complaint: ankle injury ( Left) and foot injury ( left) Onset (ago): day(s) (1) Injury: Left: ankle and foot Type of Injury: inversion Place: home Severity: moderate Severity scale (1-10): 8 Relieving factors: immobilization Exacerbating factors: movement and palpation Context: walking Associated symptoms: swelling and able to partially bear weight Other symptoms: none Related Data Home Medications Medication Instructions Recorded Confirmed allopurinol 100 mg tablet 100 mg PO DAILY 02/19/21 05/26/24 atorvastatin 10 mg tablet 10 mg PO DAILY 02/19/21 05/26/24 bupropion HCl 150 mg tablet,12 hr 300 mg PO DAILY 02/19/21 05/26/24 sustained-release montelukast 10 mg tablet 10 mg PO DAILY 02/19/21 05/26/24 calcitriol 0.5 mcg capsule 0.5 mcg PO DAILY 11/15/23 05/26/24 albuterol sulfate 90 mcg/actuation 2 inh inhalation Q4H PRN SOB 05/26/24 05/26/24 aerosol inhaler chlorthalidone 25 mg tablet 25 mg PO DAILY 05/26/24 05/26/24 docusate sodium 100 mg capsule 100 mg PO BID 05/26/24 05/26/24 duloxetine 60 mg capsule,delayed 60 mg PO HS 05/26/24 05/26/24 release fluticasone furoate 200 1 inh inhalation BID 05/26/24 05/26/24 mcg-vilanterol 25 mcg/dose inhalation powder (Breo Ellipta) losartan 100 mg tablet 50 mg PO HS 05/26/24 05/26/24 pregabalin 75 mg capsule 75 mg PO BID 05/26/24 05/26/24 spironolactone 25 mg tablet 25 mg PO DAILY 05/26/24 05/26/24 Allergies Allergy/AdvReac Type Severity Reaction Status Date / Time anti fungal cream Allergy Severe Swelling Uncoded 05/26/24 10:02 Review of Systems Review of Systems: All systems reviewed & are unremarkable except as noted in HPI and below Constitutional: Constitutional: Reports no additional constitutional complaints Eyes: Eyes: Reports no additional eye complaints ENT: Reports system reviewed and no additional complaints, except as documented Cardiovascular: Cardiovascular: Reports no additional cardiovascular complaints Respiratory: Respiratory: Reports no additional respiratory complaints Gastrointestinal: Gastrointestinal: Reports no additional gastrointestinal complaints Genitourinary: Genitourinary: Reports no additional female genitourinary complaints Musculoskeletal: Musculoskeletal: Reports no additional musculoskeletal complaints Integumentary/Breasts: Skin/Breast: Reports system reviewed and no additional complaints, except as docu Neurologic: Reports system reviewed and no additional complaints, except as documented Psychiatric: Psychiatric: Reports no additional psychiatric complaints Endocrine: Endocrine: Reports no additional endocrine complaints Hematologic/Lymphatic: Hematologic/Lymphatic: Reports no additional hematologic/lymphatic complaints Allergic/Immunologic: Allergic/Immunologic: Reports no additional allergic/immunologic complaints PMFSH Past Medical History Medical History Chronic back pain COPD (chronic obstructive pulmonary disease) Hyperlipidemia Hypertension Surgical History Surgical History H/O tubal ligation History of appendectomy Family History Family History Father Alcoholism Hypertension Mother Alcoholism Depression Grandparent Heart disease Grandparent Heart disease Other Family history non-contributory Social History Social History Smoking packs per day: 1 Smoking cigarettes per da
== END 2024-05-26 10:46 | disposition home or self-care (01) ==
LOC: CHSED 10:50
PROVIDERS: Emergency Provider Emergency Medicine; PCP Internal Medicine
DX: S93.402A Sprain of unspecified ligament of left ankle, initial encounter (principal); J44.9 Chronic obstructive pulmonary disease, unspecified; E78.5 Hyperlipidemia, unspecified; I10 Essential (primary) hypertension; F17.210 Nicotine dependence, cigarettes, uncomplicated; Z79.899 Other long term (current) drug therapy; X50.0XXA Overexertion from strenuous movement or load, initial encounter; Y92.009 Unspecified place in unspecified non-institutional (private) residence as the place of occurrence of the external cause
CPT/HCPCS: 73610; 73630; 99283

== ENCOUNTER 2024-05-28 09:49 | Outpatient (CLI) | payer OTHER, SELFPAY ==
--- NOTE | 2024-05-30 15:51 | P.PCNPFT_ITS ---
PFT Procedure Performed PFT Procedure Performed Spirometry with Pre/Post Bronchodilator Plethysmography (Lung Vol) Diffusing Cap (DLCO) Flow Vol Loop PFT Interpretation DOS: 05/28/2024 REQUESTING: Riddhi Graham MD REASON FOR TESTING: PULMONARY FUNCTION TESTS Results are reliable and reproducible. Spirometry: The pre-bronchodilator FEV1 is 2.18 L, 91%, normal. The pre- bronchodilator FVC is 2.70 L, 93%, normal. The FEV1/FVC ratio is 81%, normal. After bronchodilator, the FEV1 is 2.26 L, 94%, +3%. The post-bronchodilator FVC is 2.85 L, 98%, +5%. The FEV1/FVC ratio is 79%. Lung volumes: The total lung capacity is 3.83 L, 87%, normal. FRC is 1.78 L, 137%. The residual volume is 1.13 L, 76%, normal. The RV/TLC is 29%. Airway resistance is normal. Diffusion: DLCO is 14.8, 51%. The DLCO/VA is 4.24, 102%. Flow volume loop: The flow volume loop is normal. IMPRESSION: This study shows normal spirometry without significant response to bronchodilator, normal lung volumes and moderate diffusion impairment which normalizes with alveolar volume. Lack of response to bronchodilator should not preclude use if clinically indicated. Magalie Thompson MD
== END 2024-05-28 09:50 | disposition home or self-care (01) ==
LOC: CHSCARD 09:54
PROVIDERS: PCP Internal Medicine; Visit Provider Internal Medicine Cardiovascular Disease
DX: J44.9 Chronic obstructive pulmonary disease, unspecified (principal); F17.200 Nicotine dependence, unspecified, uncomplicated
CPT/HCPCS: 94060; 94726; 94729

== ENCOUNTER 2025-02-28 10:32 | Outpatient (CLI) | payer OTHER, SELFPAY ==
--- NOTE | ~2025-02-28 | XR_ITS ---
XR ankle RT min 3V, XR foot RT min 3V 02/28/2025 10:57 Indication: Right ankle and foot pain Procedure: 3 views right ankle and 4 views right foot Comparison: No prior studies for comparison. Findings: There is a degenerative calcaneal enthesophyte at plantar surface. Ankle mortise intact. No acute fracture or traumatic malalignment. Lisfranc joint intact. No focal soft tissue abnormality. N o foreign bodies. Impression: 1: No acute bone or joint abnormality. Reviewed, dictated and finalized at location A. Impression: 1: No acute bone or joint abnormality. Impression: 1: No acute bone or joint abnormality.
--- OUTSIDE RECORDS SUMMARY | 2025-02-28 10:37 | XMS_ITS | Clinical Summary ---
Author Organization [facility] [employer] Address [address] 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 [employer],non-owned Affiliates and Associated Physician Practices is amultiple site organization consisting of ambulatory clinics and hospital sitesin [place], [place], [place] and [place]. This disclosure is being madepursuant to the Care Everywhere program and may not contain all information available regarding this patient. Last updated 18.[facility] [employer] Allergies No known active allergies Medications * Be aware that medications may not be up to date on this document. Alwaysverify current medications with the patient. atorvastatin (LIPITOR) 10 MG tablet 11/15/2018 Active buPROPion XL 24hr (WELLBUTRIN-XL) 300 MG tablet 11/15/2018 Activ e montelukast (SINGULAIR) 10 MG tablet Take 10 mg by mouth at bedtime Active benzonatate (TESSALON) 100 MG capsule Take 100 mg by mouth 3 times daily as needed for Cough Active hydroCHLOROthia zide (HYDRODIURIL) 12.5 MG Take 25 mg by mouth once daily Active Magnesium Oxide (MAGNESIUM OXIDE 400) 240 MG PACK Active gabapentin PHN (GRALISE) 300 MG tablet Take 300 mg by mouth daily with dinner Active fluticasone-karen meterol 232-14 MCG/ACT inhaler Inhale 1 puff by mouth 2 times daily Active etodolac (LODINE) 200 MG capsule Take 2 capsules by mouth 2 times daily 120 capsule 2 08/21/2019 Active Active Problems No known active problems Social History Tobacco Use Types Packs/Day Years Used Date Smoking Tobacco: Former Cigarettes Smokeless Tobacco: Never Comments No Sex and Gender Information Value Date Recorded Sex Assigned at Not on file Legal Sex Female 11:26 AM CDT Gender Identity Not on file Sexual Orientation Not on file Last Filed Vital Signs Vital Sign Reading Time Taken Comments Blood Pressure 127/96 08/12/2019 1:28 PM 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 Pulse 78 08/12/2019 1:28 PM 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 Temperature - - Respiratory Rate - - Oxygen Saturation 97% 08/12/2019 1:28 PM 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 Inhaled Oxygen Concentration - - Weight 119.7 kg (264 lb) 08/12/2019 1:28 PM 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 Height 157.5 cm (5' 2) 08/12/2019 1:28 PM 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 Body Mass Index 48.29 08/12/2019 1:28 PM 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 Plan of Treatment Health Maintenance Due Date Last Done Comments COLOGUARD (AGES 45-75) - COL ON CA SCREENING 1976 COLON MONITORING 1976 COLONOSCOPY - COLON CA SCREENING 1976 CT COLONOGRAPHY - COLON CA SCREENING 1976 Colorectal Cancer Screening 1976 FIT - COLON CA SCREENING 1976 FLEX SIG - COLON CA SCREENING 1976 MAMMOGRAM 1976 HIV SCREENING 1991 HEPATITIS C SCREENING 05/24/1994 DTAP/TDAP/TD VACCINES (1 - Tdap) 1995 HEPATITIS B VACCINE (1 of 3 - 19+ 3-dose series) 1995 SCREENING FOR DIABETES 10/01/2018 COVID-19 VACCINE (1 - 2023-2 5 season) 2024 DEPRESSION SCREENING 09/25/2024 INFLUENZA VACCINE (Season Ended) 2025 ZOSTER VACCINE (1 of 2) 2026 HIB VACCINE Aged Out No longer eligi ble based on patient's age to complete this topic HPV VACCINE Aged Out No longer eligi ble based on patient's age to complete this topic MENINGOCOCCAL (Group B) VACC INE SHARED DECISION-MAKING Aged Out No longer eligibl e based on patient's age to complete this topic MENINGOCOCCAL GROUPS A/C/Y/W VACCINE Aged Out No longer eligible b ased on patient's age to complete this topic PNEUMOCOCCAL VACCINE Aged Out No long er eligible based on patient's age to complete this topic Insurance [facility] MEDICAID - OUT OF STATE [facility] Care Teams Construction Producer Relationship Specialty Start Date End Date Cornelia Teresa MD PCP - General 03/15/18
--- OUTSIDE RECORDS SUMMARY | 2025-02-28 10:37 | XMS_ITS | Referral Summary ---
Author Organization [facility] Building B Address [address] [place] [address] Care Team Providers Care Kennel Technician Name Role Phone Cornelia Teresa MD Primary Care Provider [phone] Allergies Active Allergy Reactions Criticality Noted Date Comments Prochlorperazine Rash Medium 09/11/2019 Terbinafine Rash,Unknown Medium 05/25/2022 Medications atorvastatin (LIPITOR) 10 mg tablet Take 10 mg by mouth daily 2 9 Active montelukast (SINGULAIR) 10 mg tablet Take 10 mg by mouth nightly Active buPROPion SR (WELLBUTRIN SR) 150 mg 12 hr tablet 150 mg 150 mg two times daily 9 Active NOT IN DATABASE, PRESCRIPTION, Drug name: Indica Dose: 10 mg Route: PO Frequency: once Duration: Active ibuprofen (ADVIL,MOTRIN) 800 mg tablet Take 800 mg by mouth every 6 (six) hours as needed for pain Active propranoloL (INDERAL) 10 mg tablet 2 Active losartan (COZAAR) 100 mg tablet [address] (CYMBALTA) 60 mg capsule 2 Active albuterol HFA (PROVENTIL HFA,VENTOLIN HFA,PROAIR HFA) 90 mcg/actuation inhaler 2 (two) times a day 9 Active albuterol 2.5 mg /3 mL (0.083 %) nebulizer solution as needed 0 Active allopurinoL (ZYLOPRIM) 100 mg tablet Take 1 tablet (100 mg total) by mouth 0 Active potassium chloride ER 10 mEq CR tablet 3 Active multivit-min/iro n fum/folic ac (ONE-A-DAY WOMEN'S COMPLETE ORAL) 3 Active methocarbamoL (ROBAXIN) 500 mg tablet 3 Active cyanocobalamin, vitamin B-12, (VITAMIN B-12 ORAL) 3 Active chlorthalidone (HYGROTON) 25 mg tablet Take by mouth 3 Active cetirizine (ZyrTEC) 10 mg tablet daily 0 Active calcitRIOL (ROCALTROL) 0.5 mcg capsule 0 Active Symbicort 160-4.5 mcg/actuation inhaler 0 Active biotin 10,000 mcg tablet,chewable 3 Active triamcinolone (KENALOG) 0.1 % ointmentIndicati ons:Skin Inflammation Apply to affected area 2-3 times a day for the next 7 to 14 days as needed. 30 g 1 4 Active docusate sodium (COLACE) 100 mg capsuleIndicatio ns:constipation TAKE 1 CAPSULE (100 MG TOTAL) BY MOUTH 2 (TWO) TIMES A DAY NEEDED FOR CONSTIPATION 60 capsule 3 4 Active Active Problems Problem Noted Date Diagnosed Date Chronic constipation 12/14/2023 Assessment & Plan (12/14/2023 2:24 PM CDT): Patient is physically limited due to hip pain/injury. Importance of adequate amount of fiber in diet discussed. Symptoms may be worsening as she is now taking additional diuretic medication needed for other comorbid condition at this time. Can take Colace daily. Advise 1 tablet daily, can increase to 2 tablets daily as needed. If no improvement in symptoms I would encourage patient to follow up with Gastroenterology. Acute vulvitis 12/14/2023 Assessment & Plan (12/14/2023 2:20 PM CDT): Steroid ointment to external area of vulva 2 to 3 times a day as needed. If no improvement in 2 weeks advised patient to call office. Importance of skin/vaginal hygiene discussed. Use of Dial or Dove soap only to external vaginal area. Keep skin of vulva as dry as possible and avoid excess moisture. Try to limit pad use, however I informed patient that I did understand this would be hard for her to do with her incontinence issues. Mixed stress and urge urinary incontinence 12/13 Assessment & Plan (12/14/2023 2:21 PM CDT): Does not desire urology consult or any intervention at this time. Patient is hopeful lifestyle modification and weight loss will lessen symptoms. Will continue to monitor. Screening for colon cancer 12/07/2020 Assessment & Plan (12/07/2020 3:00 PM CDT): copnstipation with one bm/week and blood in the stool. No family Hx. Blood in stool 12/07/2020 Overview (12/07/2020): Added automatically from request for surgery [id number] Morbid obesity with body mas s index (BMI) of 50.0 to 59.9 in adult 10/16/2019 Assessment & Plan (10/16/2019 10:26 AM SWEEP PRESS OPERATOR): Encourage a weight loss program such as Weight Watchers incorporating dietary changes and aerobic / weight-bearing exercise at least 4-5 times per week, for at least 30-45 minute sessions. HPV - Human papillomavirus test positive 015 Overview (12/30/2016): HPV - Human papillomavirus test positive Social History Tobacco Use Types Packs/Day Years Used Date Smoking Tobacco: Former Cigarettes Q uit: 09/25/2021 Smokeless Tobacco: Never Tobacco Cessation:Counseling Given: Not Answered Comments:Smoking History Packs/day: 1 Packs Alcohol Use Standard Drinks/Week Comments No 0 (1 standard drink = 0.6 oz pur e alcohol) AUDIT-C Answer Date Recorded Frequency of Alcohol Consumption Not on file 06/15/2023 Q2: How many drinks containi ng alcohol do you have on a typical day when you are drinking? Patient does not drink Frequency of Binge Drinking Not on file 05/27 PHQ-2 Answer Date Recorded PHQ-2 Score 0 09/11/2019 Personal Safety Answer Date Recorded Getting School Help Needed Not on file 11/23 Comments No Sex and Gender Information Value Date Recorded Sex Assigned at Not on file Legal Sex Female 2:15 AM SWEEP PRESS OPERATOR Gender Identity Not on file Sexual Orientation Not on file Last Filed Vital Signs Vital Sign Reading Time Taken Comments Blood Pressure 104/52 04/23/2024 9:54 AM CDT Pulse 76 12/15/2020 8:46 AM CDT Temperature 35.9 C (96.6 F) 12/15/2020 8:46 AM CDT Respiratory Rate 18 12/15/2020 8:46 AM CDT Oxygen Saturation 98% 12/15/2020 8:46 AM CDT Inhaled Oxygen Concentration - - Weight 128.8 kg (284 lb) 04/23/2024 9:54 AM CDT Height 154.9 cm (5' 1) 04/23/2024 9:54 AM CDT Body Mass Index 53.66 04/23/2024 9:54 AM CDT Plan of Treatment Not on file Procedures Procedure Name Priority Date/Time Associated Diagnosis Comments SCREENING MAMMOGRAM BILATERAL W TYSHAWN Schedule Routine, Read Routine (OP Routine) 05/21/2024 1:24 PM CDT HIGH RISK HPV DNA DETECTION WITH GENOTYPING Routine 04/23/2024 10:31 AM CDT Well woman exam COLONOSCOPY 12/15/2020 7:16 AM CDT from Last 3 Months or Most Recently Relevant to Health Maintenance Results * Screening Mammogram Bilateral W Tyshawn (05/21/2024 1:24 PM CDT) Anatomical Region Laterality Modality Breast Bilateral Mammography us Historical Provider MD [facility] MAMMO PROCEDURES Marilyn l Result * High Risk HPV DNA Detection with Genotyping (Molecular component) (04/23/2024 10:31 AM CDT) HPV HR 16 Not Detected Not Detected [facility] Comment:Testing performed by : [facility], [address] [facility] [place]., [address] HPV HR 18 Not Detected Not Detected [facility] RICE Comment:Testing performed by : [facility], [address] [place]., [address] HPV HR Non 16/18 Not Detected Not Detected [facility] RICE Comment: Interpretive Data Nucleic acid amplification for detection of high-risk Human Papilloma virus (HPV) is performed by the Angeline Sean 6800 HPV test. This assay specifically detects HPV-16 and HPV-18 genotypes. The following HPV genotypes are detected as high-risk HPV: HPV-31, 33, 35, ,39, 45, 51, 52, 56, 58, 59, 66, and 68. This assay has been approved by the [place] Food and Drug Administration for detection of HPV in cervical specimens collected by a physician using an endocervical brush/spatula or cervical broom and placed in the ThinPrep Pap Test PreservCyt collection containers. The performance characteristics of this test have been verified by the [facility] Molecular Infectious Disease laboratory. Correlate with separately reported cytology results, as applicable. Interpretive data last revised 23 Testing performed by: [facility], [address] [place]., [address] Endocervical 04/23/2024 10:3 1 AM CDT 04/24/2024 6:36 PM CDT Narrative ALYSON - 04/24/2024 8:56 PM CDT Clinical history and diagnosis->Well Woman Exam Number of vials->1 Testing type->Screening Last menstrual period (date if known)->7--24 Adithya Garces MD LAB BODY FLUIDS AND STOOLS ORDERABLES Final Result AL[facility]ON [id number] Department [place] [address] [facility] * COLONOSCOPY (12/15/2020 7:16 AM CDT) Anatomical Region Laterality Modality Other Narrative Procedure Note Torrey Gary MD - 12/15/2020 7:16 AM CDT [facility] Patient Name: Margie Sage Procedure Date: 12/15/2020 7:16 AM Date of : 1975 Admit Type: Outpatient Age: 45 Gender: Female Attending MD: Torrey Gary M.D. Room: [facility] ENDOSCOPY ROOM 2 Note Status: Finalized Patient Profile: Refer to note in patient chart for documentation of history and physical. Procedure: Colonoscopy Indications: This is the patient's first colonoscopy, Positive fecal immunochemical test Referring MD: Cornelia Teresa MD Providers: Torrey Gary M.D. Impression: - Hemorrhoids found on perianal exam. - The entire examined colon is normal. - No specimens collected. Recommendation: - Discharge patient to home. - Resume previous diet. - Continue present medications. - Repeat colonoscopy in 10 years for screening purposes. - Return to primary care physician as previously scheduled. Medicines: Propofol per Anesthesia Complications: No immediate complications. Estimated Blood Loss: Estimated blood loss: none. Procedure: Pre-Anesthesia Assessment: - This assessment was completed [Time ofAssessment] prior to the administration of sedation. The benefits, risks and alternatives of theprocedure and sedation were discussed and informed consentwas obtained. All questions were answered. Please referto the signed informed consent document in the medical record. The scope was passed under direct vision.The Colonoscope [id number] was introducedthrough the anus and advanced to the the cecum, identifiedby appendiceal orifice and ileocecal valve. The bowel preparation used was Miralax via single dose instruction. The bowel preparation used wasbisacodyl tablets via single dose instruction. Thecolonoscopy was performed with ease. The patient tolerated the procedure well. The quality of the bowelpreparation was good. Findings: Hemorrhoids were found on perianal exam. The colon (entire examined portion) appeared normal. Electronically signed by Torrey Gary M.D. Torrey Gary M.D. 12/15/2020 8:12:51 AM Number of Addenda: 0 Note Initiated On: 12/15/2020 7:16 AM Procedure Code(s): --- Professional --- 43520, Colonoscopy, flexible; diagnostic, including collection of specimen(s) by brushing or washing, when performed (separateprocedure) Diagnosis Code(s): --- Professional --- R19.5, Other fecal abnormalities K64.9, Unspecified hemorrhoids CPT copyright 2019 [employer]. All rights reserved. The codes documented in this report are preliminary and upon sap mobility architect reviewmay be revised to meet current compliance requirements. Recognized by the [employer] for promoting quality in endoscopy Torrey Gary MD ENDOSCOPY PROCEDURES Final Re sult from Last 3 Months or Most Recently Relevant to Health Maintenance Insurance [facility] Advance Directives For more information, please contact: [phone] * Full Code (Latest Code Status on File) Date Activated Date Inactivated Comments 12/15/2020 7:30 AM 12/15/2020 1:02 PM * Full Code Date Activated Date Inactivated Comments 12/15/2020 7:30 AM 12/15/2020 7:30 AM Care Teams Kennel Technician Relationship Specialty Start Date End Date Cornelia Teresa MD [address] [place] [address] PCP - General Internal Medicine 03/27/17
--- OUTSIDE RECORDS SUMMARY | 2025-02-28 10:37 | XMS_ITS | Clinical Summary ---
Author Organization [facility] Address [address] [place] [address] Phone Care Team Providers Care Epic Cadence Specialists Name Role Phone Cornelia Teresa MD Primary Care Provider [phone] Luis Holm MD Unavailable [phone] Allergies Active Allergy Reactions Criticality Noted Date Comments Amlodipine Unknown 03/14/2024 Clotrimazole Unknown 03/14/2024 Medications albuterol 108 (90 Base) MCG/ACT Aerosol Solution 01/02/2024 Active buPROPion SR (WELLBUTRIN SR) 150 MG TABLET SR 12 HR 02/20/2024 Active atorvastatin (LIPITOR) 10 MG Tablet 02/17/2024 Active triamcinolone (KENALOG) 0.1 % Ointment 12/14/2023 Active montelukast (SINGULAIR) 10 MG Tablet 02/28/2024 Active Breo Ellipta 200-25 MCG/ACT AEROSOL POWDER, BREATH ACTIVATED 02/26/2024 Ac tive allopurinol (ZYLOPRIM) 100 MG Tablet 02/17/2024 Active calcitRIOL (ROCALTROL) 0.5 MCG Capsule 03/14/2024 Active losartan (COZAAR) 100 MG Tablet 02/20/2024 Active DULoxetine (CYMBALTA) [address] Particles 02/28/2024 Active cetirizine (ZyrTEC) 10 MG Tablet Take 10 mg by mouth daily. Active Cyanocobalamin (Vitamin B-12 CR) 1000 MCG Tablet Controlled Release Take by mouth daily. Active methocarbamol (ROBAXIN) 500 MG Tablet Take 1,000 mg by mouth 4 times daily. Active pantoprazole (PROTONIX) 40 MG Tablet Delayed Response Take 40 mg by mouth daily. Active propranolol (INDERAL) 10 MG Tablet 03/14/2024 Active pregabalin (LYRICA) 75 MG Capsule 03/07/2024 Active Social History Tobacco Use Types Packs/Day Years Used Date Smoking Tobacco: Every Day Cigarettes Smokeless Tobacco: Never Tobacco Cessation:Ready to Q uit: Not Asked; Counseling Given: Not Answered Alcohol Use Standard Drinks/Week Comments Not Currently 0 (1 standard drink = 0.6 oz pur e alcohol) Comments Unknown Sex and Gender Information Value Date Recorded Sex Assigned at Not on file Legal Sex Female 4:50 PM CDT Gender Identity Not on file Sexual Orientation Not on file Plan of Treatment Health Maintenance Due Date Last Done Comments Hepatitis C Virus (HCV) Screening 1975 Mammogram 1975 TdaP Immunization 1975 Hepatitis B Immunization (1 of 3 - 19+ 3-dose series) 1995 Pneumococcal Immunization Combined (1 of 2 - PCV) 1995 Pap Smear 1997 Cervical Cancer Screening (CCS) 2006 HPV/Cotest 2006 Discussion re Starting/Frequency of Mammograms 2016 Colonoscopy 2021 Colorectal Cancer Screening 2021 SARS-COV-2 Immunization ( season) 2024 08/24/2021, 08/03/2021 Influenza Immunization (Seas on Ended) 2025 08/03/2021, 08/15/2014 Respiratory Syncytial Virus (RSV) Immunization (Adult) (1 - 1-dose 75+ series) 2051 Human Papillomavirus (HPV) Immunization Aged Out No longer eligible b ased on patient's age to complete this topic Meningococcal Immunization (ACWY) Aged Out No longer eligible b ased on patient's age to complete this topic Rotavirus Immunization Aged Out No lo nger eligible based on patient's age to complete this topic Insurance MEDICARE C [employer] Care Teams Epic Cadence Specialists Relationship Specialty Start Date End Date Cornelia Teresa MD [address] [place] [address] PCP - General Internal Medicine 04/05/17 Luis Holm MD [address] [place] [address] Consulting Physician Neurology 01/31/25
--- OUTSIDE RECORDS SUMMARY | 2025-02-28 10:37 | XMS_ITS | Clinical Summary ---
Author Organization [facility] Medical Office Building [facility] Address [address] [place] [address] Care Team Providers Care Hearing And Speech Assistant Name Role Phone Cornelia Teresa MD Primary Care Provider [phone] Allergies Active Allergy Reactions Criticality Noted Date [...] (12/07/2020): Added automatically from request for surgery [id number] Morbid obesity with body mas s index (BMI) of 50.0 to 59.9 in adult 10/16/2019 Assessment & Plan (10/16/2019 10:26 AM POSTAL SERVICE CLERK): Encourage a weight loss program such as Weight Watchers incorporating dietary changes and aerobic / weight-bearing exercise at least 4-5 times per week, for at least 30-45 minute sessions. HPV - Human papillomavirus test positive 015 Overview (12/30/2016): HPV - Human papillomavirus test positive Surgical History Surgery Date Site/Laterality Comments APPENDECTOMY 09/25/2010 - 09/24/2011 Appendectomy EAR SURGERY 09/25/2007 - 09/24/2008 ear surgery TUBAL LIGATION 09/25/2005 - 09/24/2006 Bilateral tubal ligation COLONOSCOPY 12/15/2020 First CARDIAC ELECTROPHYSIOLOGY MAPPING AND ABLATION CLEFT PALATE REPAIR CERVICAL BIOPSY W/ LOOP ELECTRODE EXCISION Medical History Medical History Date Comments Cleft palate Cleft palate History of abnormal cervical Papanicolaou smear 1993 Abnormal pap Abnormal Pap smear of cervix KANDACE Webber 1993 Chronic constipation 12/14/2023 Chronic diarrhea Hypertension Hyperlipidemia Anxiety 2017 Arthritis COPD (chronic obstructive pulmonary disease) (HC C) Depression 2017 Fibromyalgia, primary ? Joint pain 1995 Low back pain 1995 Morbid obesity ([facility]) 2002 Neuromuscular disorder ([facility]) 2021 Osteoporosis ? Sleep apnea 2019 Vitamin D deficiency ? Abnormal ECG 2018 Family History Medical History Relation Name Comments Miscarriages / Stillbirths Daughter 1 alexandre Obesity Daughter 2 julia Melanoma Father's Brother 1 Melanoma; Cancer Father's Brother 2 alexandra Alcohol abuse Mother Elizabeth Depression Mother Elizabeth Drug abuse Mother Elizabeth Obesity Mother Elizabeth Miscarriages / Stillbirths Paternal Grandmother [place] Relation Name Status Comments Daughter 1 alexandre Daughter 2 julia Father's Brother 1 Father's Brother 2 alexandra Mother Elizabeth Paternal Grandmother [place] Social History Tobacco Use Types Packs/Day Years [...] on file Legal Sex Female 2:15 AM POSTAL SERVICE CLERK Gender Identity Not on file Sexual Orientation Not on file Obstetrics History Para Term AB IAB SAB Ectopic Multiple Livin g Live Births 2 2 2 2 Date Outcome GA Total Labor Labor/2nd/3rd Weight Sex Type Anes PTL Connie A1 A5 Name Clin Para Vag-Spo nt Para Vag-Spo nt Last Filed Vital Signs Vital Sign Reading [...] 04/23/2024 9:54 AM CDT Plan of Treatment Health Maintenance Due Date Last Done Comments Depression Screening 1975 Hepatitis C Screening 1975 DTaP/Tdap/Td Vaccine (1 - Tdap) 1987 Hepatitis B Screening 1994 Pneumococcal vaccine <65 (1 of 2 - PCV) 1995 Covid-19 Vaccine (3 - 2023-2 5 season) 2024 08/24/2021, 08/03/2021 Cervical Cancer Screening 04/23/20252023, 04/23/2024, 10/19/2021, Additional history exists Regular Well Visit/Exam 18-64 04/23/2025, 10/19/2021, 10/13/2020, Additional history exists Breast Cancer Screening-Mammogram 05/21/2025 05/21/2024, 05/03/2023, 12/08/2020, Additional history exists Influenza Vaccine (Season Ended) 2025 08/15/20 14 Colon Cancer Screening-Colonoscopy 12/15/20302020 Procedures Procedure Name Priority Date/Time Associated Diagnosis [...] HPV HR 16 Not Detected Not Detected [facility] Comment:Testing performed by : [facility], [address] [place]., [address] HPV HR 18 Not Detected Not Detected [facility] RICE Comment:Testing performed by : [facility], [address] [place]., [address] HPV HR Non 16/18 Not Detected Not [...] this test have been verified by the [facility] Molecular Infectious Disease laboratory. Correlate with separately reported cytology results, as applicable. Interpretive data last revised 23 Testing performed by: [facility], [address] [place]., [address] Endocervical 04/23/2024 10:3 1 AM CDT 04/24/2024 6:36 PM CDT Narrative AL[facility]ON RICE - 04/24/2024 8:56 PM CDT Clinical history and diagnosis->Well Woman Exam Number of vials->1 Testing type->Screening Last menstrual period (date if known)->724 us Adithya Garces MD LAB BODY FLUIDS AND STOOLS ORDERABLES Final Result [facility] RICE [address] [place] [address] [facility] * COLONOSCOPY (12/15/2020 7:16 AM CDT) Anatomical Region Laterality Modality Other Narrative Procedure Note Torrey Gary MD - 12/15/2020 7:16 AM CDT [facility] Patient Name: Margie Sage Procedure Date: 12/15/2020 7:16 AM Date of : 1975 Admit Type: Outpatient Age: 45 Gender: Female Attending MD: Torrey Gary M.D. [facility] 2 Note Status: Finalized Patient [...] scope was passed under direct vision.The Colonoscope [id number] was introducedthrough the anus and advanced to [...] 7:16 AM Procedure Code(s): --- Professional --- 96832, Colonoscopy, flexible; diagnostic, including collection of specimen(s) by brushing or washing, when performed (separateprocedure) Diagnosis Code(s): --- Professional --- R19.5, Other fecal abnormalities K64.9, Unspecified hemorrhoids CPT copyright 2019 [employer]. All rights reserved. The codes documented in this report are preliminary and upon hcc coders reviewmay be revised to meet current compliance requirements. Recognized by the [employer] for promoting quality in endoscopy Torrey Gary MD ENDOSCOPY PROCEDURES Final Re sult from Last 3 Months or Most Recently Relevant to Health Maintenance Insurance [facility] [facility] [place] [facility] [place] Advance Directives For more information, please contact: [phone] * Full Code (Latest Code Status on File) Date Activated Date Inactivated Comments 12/15/2020 7:30 AM 12/15/2020 1:02 PM * Full Code Date Activated Date Inactivated Comments 12/15/2020 7:30 AM 12/15/2020 7:30 AM Care Teams Hearing And Speech Assistant Relationship Specialty Start Date End Date Cornelia Teresa MD [address] [place] [address] PCP - General Internal Medicine 03/27/17
--- OUTSIDE RECORDS SUMMARY | 2025-02-28 10:37 | XMS_ITS | CONTINUITY OF CARE DOCUMENT ---
Author Name marcos rodríguez Address Unknown Organization [facility] Address [address] [place] [address] Phone [phone] Care Team Providers Care Shipbuilding Draftsperson Name Role Phone Riddhi Graham MD Unavailable [phone] SHARITA BANKS MD Unavailable SHARITA BANKS MD Unavailable [phone] PROBLEMS Condition Status Date Provider Notes Long-term (current) use of o ther medications active Nestor Lagunas RN Other abnormal glucose- per PCP note 10-10-18 impaired fasting glucose active Nestor Lagunas RN Dyspnea on exertion active Ceferino Wich SVT active Romero Naik Carmen Parkinson White syndrome active Lucille Naik Obesity active Romero Naik PTSD active Romero Naik Tobacco abuse active Romero Naik Hyperlipidemia active Romero Naik COPD active Romero Naik ZEYAD, mild active Romero Naik Chest pain active Romero Naik Family History of Hyperlipidemia: completed - Jordy Polanco MD Acute exacerbation of chroni c obstructive airways disease active Curt Moody Hypertension active Enrique Dodge Osteoarthritis active Enrique Dodge Leg pain, left active Riddhi Graham MD Lower extremity edema, bilateral active [place] nda Ventimiglia [employer]ANT BABYSITTER Venous insufficiency, BLE active Jordy dhaliwal MD ENCOUNTERS Date Type Provider Location Encounter Diag nosis - In-person encounter Office Visit Riddhi Graham MD [facility] - In-person encounter Office Visit Riddhi Graham MD [facility] - In-person encounter Office Visit Riddhi Graham MD [facility] - In-person encounter Office Visit Jordy Polanco MD [facility] Family History of Hyperlipidemia:Venous insufficiency, BLE - In-person encounter Office Visit Bhavin Harrington MD [facility] - In-person encounter Office Visit Riddhi Graham MD [facility] Lower extremity edema, bilateral - In-person encounter Office Visit Riddhi Graham MD [facility] Leg pain, left - In-person encounter Office Visit Riddhi Graham MD [facility] HypertensionOsteoarthritis - In-person encounter Office Visit Riddhi Graham MD [facility] Acute exacerbation of chronic obstructive airways disease - In-person encounter Office Visit Riddhi Graham MD [facility] Carmen Parkinson White syndromeOSA, mild - In-person encounter Office Visit Riddhi Graham MD [facility] SVTWolff Parkinson White syndromeObesityPTSDTobacco abuseHyperlipidemiaCOPDOSA, mildChest pain VITAL SIGNS Date Observation Value Provider Body Mass Index (Ratio) 54.41 kg/m2 Joey Graham MD blood pressure, cuff size large Ke rri Gissell blood pressure, diastolic 62 mm[Hg] Ke rri Gissell blood pressure, systolic 114 mm[Hg] Ker ri Champnfelder oxygen saturation, oximetry 96 % Deanne Gruenenfelder respiratory rate E&M 12 /min Deanne G ruenenfelder pulse rate 97 /min Deanne Gruenenfe lder weight E&M 288 [lb_av] Deanne Gruenenfe lder height E&M 61 [in_i] Deanne Gruenenfe er Body Mass Index (Ratio) 54.60 kg/m2 Wilberto Ahmedzai blood pressure, diastolic 70 mm[Hg] Li nkLogic blood pressure, systolic 116 mm[Hg] Bianca kLogic blood pressure, cuff size large Ja rret blood pressure, diastolic 70 mm[Hg] Ja rret blood pressure, systolic 116 mm[Hg] Jar ret pulse rate 71 /min Rob y oxygen saturation, oximetry 96 % Rob respiratory rate E&M 18 /min Rob weight E&M 289 [lb_av] Rob y height E&M 61 [in_i] Rob y Body Mass Index (Ratio) 55.92 kg/m2 Joey Graham MD blood pressure, cuff size large Ke rri Gruenenfelder blood pressure, diastolic 70 mm[Hg] Ke rri Gruenenfelder blood pressure, systolic 122 mm[Hg] Ker ri Gruenenfelder oxygen saturation, oximetry 99 % Deanne Gruenenfelder respiratory rate E&M 12 /min Deanne G ruenenfelder pulse rate 106 /min Deanne Gruenenfe lder weight E&M 296 [lb_av] Deanne Ingram height E&M 61 [in_i] Deanne Ingram [facility] Body Mass Index (Ratio) 57.81 kg/m2 Farhana Polanco MD blood pressure, cuff size regular chris Blount blood pressure, diastolic 81 mm[Hg] chris Blount blood pressure, systolic 140 mm[Hg] She zhane Blount pulse rate 97 /min Lacey Blount respiratory rate E&M 18 /min Lacey Blount oxygen saturation, oximetry 97 % Lacey Blount weight E&M 306 [lb_av] Lacey Mine height E&M 61 [in_i] Laceycori Blount Body Mass Index (Ratio) 60.08 kg/m2 Adrian Harrington MD weight E&M 318 [lb_av] Bhavin Harrington MD blood pressure, cuff size large Ja [facility] blood pressure, diastolic 75 mm[Hg] Carl rret blood pressure, systolic 153 mm[Hg] Jar ret respiratory rate E&M 16 /min Rob oxygen saturation, oximetry 97 % Rob pulse rate 97 /min Rob height E&M 61 [in_i] Rob y Body Mass Index (Ratio) 59.32 kg/m2 Wilberto Wen blood pressure, diastolic 84 mm[Hg] Ke rri Gissell blood pressure, systolic 125 mm[Hg] Zaria Borrero blood pressure, cuff size large Ke rri Gissell oxygen saturation, oximetry 96 % Deanne Milleremigdiohome respiratory rate E&M 16 /min Deanne James raulpasqualeelder pulse rate 102 /min Deanne Ingram er weight E&M 314 [lb_av] Deanne Ingram lder height E&M 61 [in_i] Deanne Ingram er Body Mass Index (Ratio) 56.30 kg/m2 Joey Graham MD blood pressure, diastolic 82 mm[Hg] Cecille nkLogic blood pressure, systolic 122 mm[Hg] Bianca kLogic blood pressure, cuff size large Ke rri Eshanenfeld blood pressure, diastolic 82 mm[Hg] Ke rri Nevilleuenenfelder blood pressure, systolic 122 mm[Hg] Zaria Millerleena oxygen saturation, oximetry 96 % Deanne Milleremigdio respiratory rate E&M 16 /min Deanne James raultalatisidro pulse rate 83 /min Deanne Ingram [facility] weight E&M 298 [lb_av] Deanne Ingram er height E&M 61 [in_i] Deanne Ingram [facility] Body Mass Index (Ratio) 52.14 kg/m2 Tajadiel Dodge blood pressure, diastolic 90 mm[Hg] Cy brandi Cantor blood pressure, systolic 158 mm[Hg] Lisa peter Cantor respiratory rate E&M 18 /min Tri Cantor blood pressure, cuff size regular Cy brandi Cantor pulse rate 95 /min Tri Razbel l oxygen saturation, oximetry 95 % Tri Cantor weight E&M 276 [lb_av] Tri Campbel l height E&M 61 [in_i] Tri priest Body Mass Index (Ratio) 49.88 kg/m2 Alex bahena Lambros blood pressure, diastolic 80 mm[Hg] Jos terrazaseen Lou blood pressure, systolic 118 mm[Hg] Zechariah chapa Lou oxygen saturation, oximetry 98 % Ximena Lou respiratory rate E&M 18 /min Ximena Lou pulse rate 89 /min Jennings Lou weight E&M 264 [lb_av] Jennings Lou height E&M 61 [in_i] Ximena Lou Body Mass Index (Ratio) 48.93 kg/m2 Russel us Heena blood pressure, cuff size large Ke rri Gruenenfelder blood pressure, diastolic 80 mm[Hg] Ke rri Gruenenfelder blood pressure, systolic 108 mm[Hg] Zaria Oakesnfelder oxygen saturation, oximetry 99 % Deanne Oakesnfelder respiratory rate E&M 20 /min Deanne hillmanelder pulse rate 80 /min Deanne Nataly lder weight E&M 259 [lb_av] Deanne Eshanerishabhe lder height E&M 61 [in_i] Deanne Eshanerishabhe lder blood pressure, diastolic 80 mm[Hg] Da stefan Maribell blood pressure, systolic 118 mm[Hg] Dac ia Maribell Body Mass Index (Ratio) 44.40 kg/m2 Russel us Heena respiratory rate E&M 16 /min Romero Heena oxygen saturation, oximetry 97 % Romero Heena blood pressure, diastolic 80 mm[Hg] Thomas rcus Heena blood pressure, systolic 108 mm[Hg] Mar arlene Heena pulse rate 71 /min Romero Heena weight E&M 235 [lb_av] Romero Heena height E&M 61 [in_i] Romero Naik ALLERGIES Allergy Name Onset Date Reaction Criticality Status ANTIFUNGAL CREAM Low Criticality act [place] HISTORY OF MEDICATION USE Medication Status Instructions Dates Provider Indications Com ments chlorthalidone 25 mg tablet active TAKE 1 TABLET BY MOUTH DAILY 01/08 Georgia Arreguin pregabalin 75 mg capsule active Wilberto Wen Wegovy 0.25 mg/0.5 mL pen injector completed Inject 1 pen injector subcutaneously once a week Inject 0.25mg subcutaneously once a week for 4 weeks, then increase to 0.5mg once weekly if tolerated 01/25 - 04/26 Wilberto Wen spironolactone 50 mg tablet active TAKE 1 TABLET BY MOUTH EVERY DAY 10/17 Wilberto Wen ibuprofen 800 mg tablet active TAKE 1 TABLET BY MOUTH THREE TIMES DAILY NEEDED FOR PAIN 04/06 Bhavin Harrington MD chlorthalidone 25 mg tablet completed TAKE 1 TABLET BY MOUTH ONCE A DAY 04/06 - 01/08 Georgia Arreguin hydrochlorothiazide 12.5 mg capsule completed Take 1 capsule by mouth once a day - 04/06 Bhavin Harrington MD budesonide-formoter ol 160-4.5 mcg/actuation HFA aerosol inhaler active Ailyn Ventimiglia [employer] BABYSITTER duloxetine 60 mg capsule,delayed release(DR/EC) active Ailyn Ventimiglia [employer]FANT BABYSITTER calcitriol 0.5 mcg capsule active Ailynbabar Lugomiglia INFANT BABYSITTER cetirizine 10 mg tablet active Ailynbabar Lugomigljenny INFANT BABYSITTER atorvastatin 10 mg tablet active Ailyn Ventimiglia INFANT BABYSITTER losartan 50 mg tablet active Wilberto Wen hydrochlorothiazide 12.5 mg capsule completed Take 1 capsule by mouth once a day 06/29/22 follow up appointment needed - Portia Dyer albuterol sulfate 2.5 mg/3 mL (0.083 %) solution for nebulization active USE 1 VIAL IN NEBULIZER THREE TIMES DAILY NEEDED Enrique Dodge allopurinol 100 mg tablet active TAKE 1 TABLET BY MOUTH ONCE DAILY Enrique Dodge propranolol 10 mg tablet active Take 1 tablet by mouth three times a day 05/12 Akhil Olsen RN propranolol 10 mg tablet completed - 05/12 Riddhi Graham MD amlodipine 10 mg tablet completed Take 1 tablet by mouth once a day 06/12 - 06/11 Enrique Dodge montelukast 10 mg tablet active Take 1 tablet by mouth once a day 06/12 Tri Cantor fluticasone propion-salmeterol completed Inhale 1 puff twice a day 06/12 - Ailyn Lugomira WEIRP cyclobenzaprine 5 mg tablet active Take 1 tablet by mouth once a day 06/12 Tri Cantor gabapentin 400 mg capsule completed Take 1 tablet by mouth three times a day 06/12 - 04/06 Bhavin Harrington MD magnesium oxide 400 mg (241.3 mg magnesium) tablet completed Take 1 tablet by mouth twice a day 04/07 - 06/11 Enrique Dodge hydrochlorothiazide 12.5 mg capsule completed Take 1 capsule by mouth once a day 06/06 - 06/11 Enrique Dodge Ventolin HFA 90 mcg/actuation HFA aerosol inhaler active 1 puff three times a day 04/26 Riddhi Graham MD MELOXICAM 15 MG ORAL TABLET completed take 1 tab once daily 04/26 - 06/12 Enrique Dodge MAGNESIUM OXIDE 400 MG ORAL TABLET completed ONE TAB TWICE A DAY 04/22 - 06/12 Tri Cantor AMLODIPINE BESYLATE 10 MG ORAL TABLET completed one tablet daily 04/22 - 06/06 Riddhi Graham MD TRAMADOL HCL 50 MG ORAL TABLET completed take one pill on 10/26 - 04/26 Ximena Lou #12, 3 days supply, Filled atorvastatin 10 mg tablet completed Take 1 tablet by mouth once a day 11/15 - 06/11 Enrique Dodge #30, 30 days supply, Filled 9 IBUPROFEN 800 MG ORAL TABLET completed take one pill every 6 hours as needed 11/23 - 04/26 Ximena Lou bupropion HCl 150 mg tablet sustained-release 12 hr active Take 1 tablet by mouth twice a day 11/02 Tri Cantor VENTOLIN HFA 108 (90 BASE) MCG/ACT INHALATION AEROSOL SOLUTION completed 2 puffs every 4-6 hours 11/02 - 04/16 Deanne Borrero SOCIAL HISTORY Date Observation Value Provider drug use, illicit, d rug of choice marijuana Wilberto Hernandezzai drug use yes Wilberto Hernandezzai alcohol use no Wilberto Hernandezzai smoking/tobacco cess ation, patient education and counseling yes Wilberto Baronei smoking, year quit 2018 Wilberto lieberman number of years as a smoker 32 a Wilberto Hernandezzai smoking history, tot al pack/day 1 pkg a day Wilberto Hernandezzai cigarette use yes Wilberto Baronei smoking status Current every da y smoker Wilberto Baronei drug use, illicit, d rug of choice marijuana Wilberto Hernandezzai drug use yes Wilberto Hernandezzai alcohol use no Wilberto Hernandezzai smoking/tobacco cess ation, patient education and counseling yes Wilberto Hernandezzai smoking, year quit 2018 Wilberto liebermanai number of years as a smoker 32 a Wilberto Hernandezzai smoking history, tot al pack/day 1 pkg a day Wilberto Davidzai cigarette use yes Wilberto Hernandezzai smoking status Current every da y smoker Wilberto Hernandezzai drug use, illicit, d rug of choice marijuana Wilberto Ahmedzai drug use yes Wilberto Wen alcohol use no Wilberto Wen smoking/tobacco cess ation, patient education and counseling yes Wilberto Wen smoking, year quit 2019 Wilberto bee number of years as a smoker 32 a Wilberto Wen smoking history, tot al pack/day 1 pkg a day Wilberto Wen cigarette use yes Wilberto Wen smoking status Current every da y smoker Wilberto Wen number of grandchildren Jordy Polanco MD social history E&M S moking History: Akbar macias currently smokes every day. Akbar macias has been counseled to quit. Jordy Polanco MD smoking/tobacco cess ation, patient education and counseling yes Jordy Polanco MD social history reviewed E&M revi ewed - no changes required Jordy Polanco MD smoking history, tot al pack/day 1 pkg a day Lacey Blount cigarette use yes Lacey Blount smoking status Current every da y smoker Lacey Blount smoking/tobacco cess ation, patient education and counseling yes Bhavin Harrington MD smoking, year quit 2019 Bhavin finley MD number of years as a smoker 32 a Bhavin Harrington MD smoking history, tot al pack/day 1/2 ppd Bhavin Harrington MD cigarette use yes Bhavin Santiago smoking status Current every da y smoker Bhavin Harrington MD social history reviewed E&M revi ewed - no changes required Bhavin Harrington MD drug use, illicit, d rug of choice marijuana Ailyn Ventimiglia [employer] BABYSITTER drug use yes Ailyn Ventimig iesha INFANT BABYSITTER alcohol use no Ailyn Ventimig iesha [facility] smoking/tobacco cess ation, patient education and counseling yes Deanne Borrero smoking, year quit 2018 Deanne serrato number of years as a smoker 32 a Deanne Borrero smoking history, tot al pack/day 1/2 ppd Ailynbabar Lugomiglia [facility] cigarette use yes Deanne stern smoking status Current every da y smoker Deanne Borrero social history E&M S moking History: P atient currently smokes every day. P atient has been counseled to quit. Enrique Dodge social history reviewed E&M revi ewed - no changes required Enrique Dodge smoking/tobacco cess ation, patient education and counseling yes Deanne Borrero smoking, year quit 2018 Deanne serrato number of years as a smoker 32 a Deanne Borrero smoking history, tot al pack/day 2 ppd Deanne Borrero cigarette use yes Deanne stern smoking status Current every da y smoker Deanne Borrero smoking/tobacco cess ation, patient education and counseling yes Enrique Dodge social history E&M S moking History: P atient currently smokes every day. Enrique Dodge social history reviewed E&M revi ewed - no changes required Enrique Dodge smoking, year quit 2019 Tri guido number of years as a smoker 32 a Tri Devaughn smoking history, tot al pack/day 2 ppd Tri Cantor cigarette use yes Tri terrazas smoking status Current every da y smoker Tri Cantor social history E&M S moking History: P atient is a former smoker. Curt Moody social history reviewed E&M revi ewed - no changes required Curt Moody smoking, year quit 2019 Ximena bethea number of years as a smoker 32 a Ximena Damonam smoking history, tot al pack/day 2 ppd Ximena Lou cigarette use yes Ximena Damonam smoking status Current every da y smoker Curt Moody social history reviewed E&M revi ewed - no changes required Romero Naik social history E&M S moking History: Akbar macias is a former smoker. Romero Naik number of years as a smoker 32 a Deanne Armstronger smoking history, tot al pack/day 2 ppd Deanne Milleremigdioer smoking, year quit 2018 Deanne Trevino endevfelder cigarette use yes Deanne Miller elder smoking status Former smoker Deanne Oakes nfelder number of grandchildren Riddhi Naik social history reviewed E&M revi ewed - no changes required Romero Naik FUNCTIONAL STATUS Date Observation Value Provider periodic limb movement index absent (0) Rohan Covrarubias MD FAMILY HISTORY Family Member Condition Mother Family History Unkno wn Father Family History of Hy perlipidemia: INSURANCE PROVIDERS Payer name Policy type / Coverage type [employer] party ID [employer] [employer] Medicaid [id number] [place] [employer] Medicare 3000 [id number] ADVANCE DIRECTIVES Name Date DISCUSSED - NO DECISION MADE TREATMENT PLAN Date Name Performer [id number],Jordy Pittman ra, [place] [id number],Jordy Pittman ra, [place] [id number],B, B P today: 140/81 P rior BP: 153/75 (04/06/2023) Her updated medication list for this problem includes: Chlorthalidone 25 Mg Tablet (Chlorthalidone) ..... Take 1 tablet by mouth once a day Losartan 100 Mg Tablet (Losartan) Propranolol 10 Mg Tablet (Propranolol) ..... Take 1 tablet by mouth three times a day Jordy Polanco MD [id number],S, Jordy Aceves ra, [place] [id number],S, H er updated medication list for this problem includes: Atorvastatin 10 Mg Tablet (Atorvastatin) Jordy Polanco MD [id number],B, Jordy Aceves ra, [place] [id number],C,T he patient is using CPAP on a regular basis. The patient has been benefiting from therapy and should continue use. Bhavin Harrington MD [id number],C, B P today: 153/75 P rior BP: 125/84 (09/23/2022) Prior 10 Yr Risk Heart Disease: Not enough information (11/16/2018) Orders: 9 9214 MOD 30-39min (CPT-19653) C omplete Echo (CPT-10461) A rterial Duplex Bi-Lower EX (CPT-45865) V enous Doppler Bilateral LE - Reflux (CPT-31321) B ASIC METABOLIC PANEL W/EGFR (46625) P ROBNP, N TERMINAL (32936) T SH, free T4, total T3 (7444) M icroalb/Creatinine Urine, Random (7117) H EMOGLOBIN A1c (496) The following medications were removed from the medication list: Hydrochlorothiazide 12.5 Mg Capsule (Hydrochlorothiazide) ..... Take 1 capsule by mouth once a day Her updated medication list for this problem includes: Chlorthalidone 25 Mg Tablet (Chlorthalidone) ..... Take 1 tablet by mouth once a day Losartan 100 Mg Tablet (Losartan) Propranolol 10 Mg Tablet (Propranolol) ..... Take 1 tablet by mouth three times a day Bhavin Harrington MD [id number],C,C hanged her HCTZ to chlorthalidone 25 mg once per day Bhavin Harrington MD [id number],C,S he is NSR on EKG today, without acute findings. She has rare palpitations. Will continue BB and monitor H er updated medication list for this problem includes: Propranolol 10 Mg Tablet (Propranolol) ..... Take 1 tablet by mouth three times a day Ailyn Avelar [facility] [id number],C,Cessation enc ouraged. Ailyn Avelar [facility] [id number],C,r emains on statin therapy. Primary is following lipids Ailynbabar Avelar [facility] [id number],C,B lood pressure well controlled. Continue present regimen. H er updated medication list for this problem includes: Hydrochlorothiazide 12.5 Mg Capsule (Hydrochlorothiazide) ..... Take 1 capsule by mouth once a day 06/29/22 follow up appointment needed Propranolol 10 Mg Tablet (Propranolol) ..... Take 1 tablet by mouth three times a day Ailynbabar Avelar [facility] [id number],C, s ees pain management Enrique Dodge [id number],B, T he patient is using CPAP on a regular basis. The patient has been benefiting from therapy and should continue use. Enrique Dodge [id number],W, O rders: T obacco cessation counseling, >10minutes (34545) Current smoker. Cessation strongly advised. Enrique Dodge [id number],S,h aving a rare fluttering sensation in chest Orders: M onitor - Telemetry (Mobile Cardiac) (CPT-25512) F VC - 65406 (97195) F RC - 91432 (19843) D LCO - 90342 (13324) s/p EP ablation for AVRT 12/13/[address] Boss. m onitor 05/2020 normal. Interpretation: R hythm: Sinus Rhythm A verage heart rate: 78BPM M aximum heart rate: 148BPM Minimum heart rate: 60BPM N ormal. H er updated medication list for this problem includes: Amlodipine 10 Mg Tablet (Amlodipine) ..... Take 1 tablet by mouth once a day Propranolol 10 Mg Tablet (Propranolol) ..... Take 1 tablet by mouth three times a day Enrique Dodge [id number],N, L LE swelling and left foot numb to the point that she cannot feel her toes. This has been happening over the last 2 months. She is scheduled to get venous dopplers 07/19/[facility] at [facility]. C urrent smoker. Cessation strongly advised done by Dr. Graham in person. Orders: 9 9213 LTD 20-29min (CPT-04709) F VC - 28214 (94473) F RC - 05397 (40050) D LCO - 06824 (01706) Enrique Dodge Electrophysiology:Clyde pike was advised to stop smoking. - the education was done by Dr. Graham in person Orders: F VC - 12443 (42915) F RC - 72341 (90834) D LCO - 82951 (02372) Tobacco cessation counseling, 3-10minutes (20470) 9 9214 MOD 30-39min (CPT-39949) T obacco user + tobacco cessation intervention (G9906) Riddhi Graham MD Electrophysiology: B P today: 114/62 P rior BP: 116/70 (01/26/2024) Prior 10 Yr Risk Heart Disease: Not enough information (11/16/2018) Her updated medication list for this problem includes: Spironolactone 50 Mg Tablet (Spironolactone) ..... Take 1 tablet by mouth every day Losartan 50 Mg Tablet (Losartan) Chlorthalidone 25 Mg Tablet (Chlorthalidone) ..... Take 1 tablet by mouth once a day Propranolol 10 Mg Tablet (Propranolol) ..... Take 1 tablet by mouth three times a day Wilberto Wen Electrophysiology:co ntributing to her swelling, recommended compression socks Wilberto Wen Electrophysiology: T he patient is using CPAP on a regular basis. The patient has been benefiting from therapy and should continue use. [facility]: e xertional, multifactorial, stable , will repeat PFT [facility] Electrophysiology:Clyde pike was advised to stop smoking. Orders: F VC - 36818 (32015) F RC - 21961 (14095) D LCO - 97518 (73147) 9 9213 LTD 20-29min (CPT-55417) T obacco cessation counseling, 3-10minutes (45182) [facility]: H er updated medication list for this problem includes: Budesonide-formoterol 160-4.5 Mcg/actuation Hfa Aerosol Inhaler (Budesonide-formoterol) Albuterol Sulfate 2.5 Mg/3 Ml (0.083 %) Solution For Nebulization (Albuterol sulfate) ..... Use 1 vial in nebulizer three times daily as needed Montelukast 10 Mg Tablet (Montelukast) ..... Take 1 tablet by mouth once a day Ventolin Hfa 90 Mcg/actuation Hfa Aerosol Inhaler (Albuterol sulfate) ..... 1 puff three times a day Orders: F VC - 82832 (77372) F RC - 99450 (47445) D LCO - 78537 (51061) 83060 LTD 20-29min (CPT-44196) T obacco cessation counseling, 3-10minutes (70058) [facility] Electrophysiology:Re commend daily exercise and diet modification [facility]:no CP [facility] mary beth Electrophysiology:wi ll send in [facility] for weight loss. [facility]:Pt denies any angina or exertional CP. [facility] Elect[facility]:BP is satisfactory. BP today: 116/70 P rior BP: 122/70 (09/08/2023) Prior 10 Yr Risk Heart Disease: Not enough information (11/16/2018) Her updated medication list for this problem includes: Spironolactone 25 Mg Tablet (Spironolactone) ..... Take 1 tablet by mouth every day Chlorthalidone 25 Mg Tablet (Chlorthalidone) ..... Take 1 tablet by mouth once a day Losartan 100 Mg Tablet (Losartan) Propranolol 10 Mg Tablet (Propranolol) ..... Take 1 tablet by mouth three times a day [facility] Electrophysiology:Clyde pike was advised to stop smoking. [facility] Electrophysiology:Clyde pike was advised to stop smoking. [facility] Electrophysiology: a dvised her to wear compression socks as much as she can, continue current medical therapy [facility] Electrophysiology:ex ertional, multifactorial, stable [facility] Electrophysiology:merced e is seeing specialist, is to enroll in water therapy, in consideration for hip surgery [facility] Electrophysiology:Pt denies any CP or SOB. H er updated medication list for this problem includes: Propranolol 10 Mg Tablet (Propranolol) ..... Take 1 tablet by mouth three times a day [facility] Electrophysiology:ad vised her to wear compression socks as much as she can, continue current medical therapy [facility] Electrophysiology: B P today: 122/70 P rior BP: 140/81 (05/08/2023) Prior 10 Yr Risk Heart Disease: Not enough information (11/16/2018) Orders: C OMPREHENSIVE METABOLIC PANEL, W/EGFR (33049) L IPID PANEL (7600) H EMOGLOBIN A1c (496) C BC (INCLUDES DIFF/PLT) (6399) P ROTHROMBIN TIME WITH INR (8847) P ARTIAL THROMBOPLASTIN TIME, ACTIVATED (763) T SH, free T4, total T3 (7444) 9 9214 MOD 30-39min (CPT-70344) [facility] Electrophysiology: W eight is not controlled. Weight loss and its benefits were discussed in detail and highly encouraged. Wilberto Wen Electrophysiology:st able at this time O rders: C OMPREHENSIVE METABOLIC PANEL, W/EGFR (34648) L IPID PANEL (7600) H EMOGLOBIN A1c (496) C BC (INCLUDES DIFF/PLT) (6399) P ROTHROMBIN TIME WITH INR (8847) P ARTIAL THROMBOPLASTIN TIME, ACTIVATED (763) T SH, free T4, total T3 (7444) 9 9214 MOD 30-39min (CPT-44016) Wilberto Wen Electrophysiology:Clyde pike was advised to stop smoking. Orders: C OMPREHENSIVE METABOLIC PANEL, W/EGFR (03205) L IPID PANEL (7600) H EMOGLOBIN A1c (496) C BC (INCLUDES DIFF/PLT) (6399) P ROTHROMBIN TIME WITH INR (8847) P ARTIAL THROMBOPLASTIN TIME, ACTIVATED (763) T SH, free T4, total T3 (7444) 9 9214 MOD 30-39min (CPT-71697) Wilberto Wen Cardiology Jordy Santiago Cardiology Jordy Santiago Cardiology: B P today: 140/81 P rior BP: 153/75 (04/06/2023) Her updated medication list for this problem includes: Chlorthalidone 25 Mg Tablet (Chlorthalidone) ..... Take 1 tablet by mouth once a day Losartan 100 Mg Tablet (Losartan) Propranolol 10 Mg Tablet (Propranolol) ..... Take 1 tablet by mouth three times a day Jordy Polanco MD Cardiology Jordy Santiago Cardiology: H er updated medication list for this problem includes: Atorvastatin 10 Mg Tablet (Atorvastatin) Jordy Polanco MD Cardiology Jordy Santiago Cardiology:The patie nt is using CPAP on a regular basis. The patient has been benefiting from therapy and should continue use. Bhavin Harrington MD Cardiology: B P today: 153/75 P rior BP: 125/84 (09/23/2022) Prior 10 Yr Risk Heart Disease: Not enough information (11/16/2018) Orders: 9 9214 MOD 30-39min (CPT-40782) C omplete Echo (CPT-46774) A rterial Duplex Bi-Lower EX (CPT-77280) V enous Doppler Bilateral LE - Reflux (CPT-71496) B ASIC METABOLIC PANEL W/EGFR (17741) P ROBNP, N TERMINAL (91706) T SH, free T4, total T3 (7444) M icroalb/Creatinine Urine, Random (7117) H EMOGLOBIN A1c (496) The following medications were removed from the medication list: Hydrochlorothiazide 12.5 Mg Capsule (Hydrochlorothiazide) ..... Take 1 capsule by mouth once a day Her updated medication list for this problem includes: Chlorthalidone 25 Mg Tablet (Chlorthalidone) ..... Take 1 tablet by mouth once a day Losartan 100 Mg Tablet (Losartan) Propranolol 10 Mg Tablet (Propranolol) ..... Take 1 tablet by mouth three times a day Bhavin Harrington MD Cardiology:Changed h er HCTZ to chlorthalidone 25 mg once per day Bhavin Harrington MD Electrophysiology:Merced mensah is NSR on EKG today, without acute findings. She has rare palpitations. Will continue BB and monitor H er updated medication list for this problem includes: Propranolol 10 Mg Tablet (Propranolol) ..... Take 1 tablet by mouth three times a day [facility] Electrophysiology:Cessation enco uraged. [facility] Electrophysiology:re cindy on statin therapy. Primary is following lipids [facility] Electrophysiology:Bl ood pressure well controlled. Continue present regimen. H er updated medication list for this problem includes: Hydrochlorothiazide 12.5 Mg Capsule (Hydrochlorothiazide) ..... Take 1 capsule by mouth once a day 06/29/22 follow up appointment needed Propranolol 10 Mg Tablet (Propranolol) ..... Take 1 tablet by mouth three times a day [facility] Electrophysiology: s ees pain management Enrique Dodge Electrophysiology: T he patient is using CPAP on a regular basis. The patient has been benefiting from therapy and should continue use. Enrique Dodge Electrophysiology: O rders: T obacco cessation counseling, >10minutes (93524) Current smoker. Cessation strongly advised. Enrique Dodge Electrophysiology:broussard ving a rare fluttering sensation in chest Orders: M onitor - Telemetry (Mobile Cardiac) (CPT-45636) F VC - 68537 (28334) F RC - 03212 (17678) D LCO - 68197 (07309) s/p EP ablation for AVRT 12/13/[address] Boss. m onitor 05/2020 normal. Interpretation: R hythm: Sinus Rhythm A verage heart rate: 78BPM M aximum heart rate: 148BPM Minimum heart rate: 60BPM N ormal. H er updated medication list for this problem includes: Amlodipine 10 Mg Tablet (Amlodipine) ..... Take 1 tablet by mouth once a day Propranolol 10 Mg Tablet (Propranolol) ..... Take 1 tablet by mouth three times a day Riddhi Graham MD Electrophysiology: L LE swelling and left foot numb to the point that she cannot feel her toes. This has been happening over the last 2 months. She is scheduled to get venous dopplers 07/19/21 at [facility]. Jo-Ann kinney smoker. Cessation strongly advised done by Dr. Graham in person. Orders: 9 9213 LTD 20-29min (CPT-56589) F VC - 71445 (00358) F RC - 71355 (06618) D LCO - 39984 (82969) Riddhi Graham MD Cardiology follow up completed : C gregoria smoker. Cessation strongly advised. Enrique Dodge Cardiology follow up completed : s ees pain management Enrique Dodge Cardiology follow up completed : T he patient is using CPAP on a regular basis. The patient has been benefiting from therapy and should continue use. Enrique Dodge Cardiology follow up completed : P CP to manage H er updated medication list for this problem includes: Atorvastatin Calcium 10 Mg Oral Tablet (Atorvastatin calcium) ..... Take one pill a day Enrique Dodge Cardiology follow up completed : s tart amlodipine p t advised to limit salt and lose weight .info for serota diet given. BP today: 158/90 P rior BP: 118/80 (04/26/2019) Her updated medication list for this problem includes: Amlodipine Besylate 10 Mg Oral Tablet (Amlodipine besylate) ..... One tab by mouth at bedtime Hydrochlorothiazide 12.5 Mg Oral Capsule (Hydrochlorothiazide) ..... One tablet daily, stop norvasc Enrique Dodge Cardiology follow up completed : n otes occasional palpitations s /p EP ablation for AVRT 12/13/[address] Boss. 1 -week Telesentry monitor 10/2018, which showed 10 seconds of SVT ~23 beats, max HR 140bpm. Orders: 9 9214 MOD Complex (CPT-27029) H olter Monitor 48 hr (CPT-14572) Her updated medication list for this problem includes: Amlodipine Besylate 10 Mg Oral Tablet (Amlodipine besylate) ..... One tab by mouth at bedtime Enrique Dar Electrophysiology:s/ p EP ablation for AVRT 12/13/[address] Boss. 1 -week Telesentry monitor 10/2018, which showed 10 seconds of SVT, max HR 140bpm. W ill order one week tele monitor & #13;Her updated medication list for this problem includes: Amlodipine Besylate 10 Mg Oral Tablet (Amlodipine besylate) ..... One tablet daily Curt Moody Electrophysiology:s/ p EP ablation for AVRT 12/13/[address] Boss. 1 -week Telesentry monitor 10/2018, which showed 10 seconds of SVT, max HR 140bpm. W ill order one week tele monitor & #13; 1 -week Telesentry 10/2018: R hythm: Sinus Rhythm with a Paroxysmal Supraventricular Tachycardia event. T he average heart rate of 68BPM, and with a maximum heart rate of 84BPM. T he minimum heart rate of 52BPM. EKG today shows she is in NSR. Curt Dyeros Electrophysiology:We ight is not controlled. Weight loss and its benefits were discussed in detail and highly encouraged. Curt Fransisco Electrophysiology:Clyde pike continues to smoke everyday. STRONGLY ENCOURAGED TO STOP SMOKING; SMOKING CESSATION TECHNIQUES DISCUSSED. Will Rx Ventolin one puff 3 times daily. Her updated medication list for this problem includes: Ventolin Hfa 108 (90 Base) Mcg/act Inhalation Aerosol Solution (Albuterol sulfate) ..... One puff three times daily Curt Fransisco Electrophysiology:Cu rrent smoker. Cessation strongly advised. Curt Fransisco Electrophysiology Fo llow up : Pamela edwards CP. R juan antonio treadmill stress test 11/16/18 was negative for ischemia. Extremely poor exercise tolerance, total exercise time 3min 42sec. METS 4.6. E cho 11/15/18 showed EF 65%. Romero Naik Electrophysiology Fo llow up : H ome sleep study 11/15/18 showed mild ZEYAD, AHI 12.2. Will check sleep titration study. Orders: S leep Study Titration (CPT-98727) Romero Naik Electrophysiology Fo llow up : P FTs on 11/16/18 showed small airway disease, FVC 86%, FEV1 84%, FRC 72%, DLCO 93%. S he reports she quit smoking 30 days ago. Romero Naik Electrophysiology Fo llow up : s /p EP ablation for AVRT 12/13/[address] Boss. 1 -week Telesentry monitor 10/2018, which showed 10 seconds of SVT, max HR 140bpm. 1-week Telesentry 10/2018: R hythm: Sinus Rhythm with a Paroxysmal Supraventricular Tachycardia event. T he average heart rate of 68BPM, and with a maximum heart rate of 84BPM. T he minimum heart rate of 52BPM. Roemro Naik Electrophysiology Fo llow up : s /p EP ablation for AVRT 12/13/[address] Boss. 1 -week Telesentry monitor 10/2018, which showed 10 seconds of SVT, max HR 140bpm. Romero Naik Electrophysiology Ne w Patient : W ill check treadmill stress test and echo doppler. Orders: S tress Routine (CPT-27563) C omplete Echo (CPT-03056) 9 9205 HIGH Complex (CPT-94290) S chedule Followup (*) Romero Naik Electrophysiology Ne w Patient : Jo-Ann ames home sleep study. Orders: S leep Study Home (CPT-15406) 9 9205 HIGH Complex (CPT-22679) S chedule Followup (*) Romero Naik Electrophysiology Ne w Patient : M anaged by PCP. Labs 10/10/18: C holesterol: 210 H DL: 51 T ri L DL: 123 Romero Naik Electrophysiology Ne w Patient : Akbar macias continues to smoke everyday. STRONGLY ENCOURAGED TO STOP SMOKING; SMOKING CESSATION TECHNIQUES DISCUSSED. Will check PFTs. Orders: F VC - 93869 (35283) F RC - 60822 (78431) D LCO - 96314 (35168) 9 9205 HIGH Complex (CPT-13589) S chedule Followup (*) Her updated medication list for this problem includes: Ventolin Hfa 108 (90 Base) Mcg/act Inhalation Aerosol Solution (Albuterol sulfate) ..... 2 puffs every 4-6 hours Romero Naik Electrophysiology Ne w Patient : s /p EP ablation for AVRT 12/13/[address] Boss. Will check 1-week Telesentry. Orders: M obile Cardiac Tele (CPT-26621) E KG (CPT-55407) 9 9205 HIGH Complex (CPT-18123) S chedule Followup (*) Romero Naik Electrophysiology Ne w Patient : s /p EP ablation for AVRT 12/13/[address] Boss. Will check 1-week Telesentry. Orders: M obile Cardiac Tele (CPT-30537) E KG (CPT-19904) 9 9205 HIGH Complex (CPT-03256) S chedule Followup (*) Romero Naik Date Name DLCO - 18928 FRC - 08963 FVC - 57145 TSH, free T4, total T3 PARTIAL THROMBOPLAST IN TIME, ACTIVATED PROTHROMBIN TIME WIT H INR CBC (INCLUDES DIFF/P LT) HEMOGLOBIN A1c LIPID PANEL COMPREHENSIVE METABO LIC PANEL, W/EGFR HEMOGLOBIN A1c Microalb/Creatinine Urine, Random TSH, free T4, total T3 PROBNP, N TERMINAL BASIC METABOLIC PANE L W/EGFR Venous Doppler Bilat eral LE - Reflux Arterial Duplex Bi-L ower EX Complete Echo DLCO - 75754 FRC - 22238 FVC - 82990 Monitor - Telemetry (Mobile Cardiac) Complete Echo Holter Monitor 48 hr Mobile Cardiac Tele DLCO - 44135 FRC - 22162 FVC - 68709 Sleep Study Titratio n DLCO - 07145 FRC - 68741 FVC - 10549 Complete Echo Stress Routine Mobile Cardiac Tele Sleep Study Home HISTORY OF PROCEDURES Procedure Date Procedure Name Provider Procedure Notes S tatus Tobacco user + tobac co cessation intervention Riddhi Graham MD completed EKG Riddhi Graham MD comp leted EKG Riddhi Graham MD comp leted EKG Riddhi Graham MD comp leted EKG Deanne Borrero compl eted Spirometry Riddhi Graham MD comp leted FVC / MVV - 98748 Riddhi Graham MD completed FRC - 29405 Saulius Thorpeitis com pleted SpO2 w/o 6min walk/titration Saulius Maurilioitis completed SVC - 12564 Saulius Thorpeitis com pleted DLCO - 57500 Saulius Thorpeitis co mpleted Event Monitor Saulius Maurilioitis c ompleted EKG Saulius Gladys FERNANDES comp leted EKG Saulius Gladys FERNANDES comp leted FVC / MVV with bronchodilator - 31177 Riddhi Graham MD completed BLOOD COUNT HEMOGLOBIN Riddhi Graham MD completed FRC - 71909 ulius Gladys FERNANDES com pleted SpO2 w/o 6min walk/titration ulius Gladys FERNANDES completed DLCO - 00971 ulius Gladys FERNANDES co mpleted Schedule Followup Saulius Gladys FERNANDES In one y ear completed EKG Riddhi Graham MD comp leted Schedule Followup ulius Gladys FERNANDES in 1 yr completed Stress EKG Rohan Covarrubias MD complete d FVC / MVV with bronchodilator - 47137 Riddhi Graham MD completed FRC - 29177 ulius Gladys FERNANDES com pleted SpO2 w/o 6min walk/titration ulius Gladys FERNANDES completed DLCO - 82907 ulius Glayds FERNANDES co mpleted Event Monitor ulius Gladys FERNANDES c ompleted Schedule Followup Riddhi Graham MD after te sting completed EKG Riddhi Graham MD comp leted
== END 2025-02-28 10:33 | disposition home or self-care (01) ==
LOC: CHSIMG 10:34
PROVIDERS: PCP Internal Medicine; Visit Provider Nurse Practitioner Family
DX: M79.671 Pain in right foot (principal)
CPT/HCPCS: 73610; 73630